=== PATIENT | female | born 1955 | race Caucasian/White ===

== ENCOUNTER 2018-04-02 05:17 | Inpatient (IN) ==
[2018-04-02] MEDS ORDERED: fentaNYL citrate 100 MCG/2 ML VIAL IV STA ×2 (05:33→06:20)
--- NOTE | 2018-04-02 05:39 | Emergency Department Note ---
ED Provider Note Name: Katlyn Schreiber Age: 62 F Arrives Via: EMS Informant: Patient CC: Neck pain HPI: 62 female arrives for evaluation of neck pain. Patient notes 1 month of cervical pain. Radiation to left face, left shoulder, left chest, and sometimes down back. Using Tylenol for mild improvement. She notes she has seen PCP for this without clear cause other than Xrays showing cervical degenerative changes. Was on a course of prednisone which did improve symptoms though they returned. She notes she was sleeping in a new bed this evening while visiting daughter. She notes she awoke and pain was unbearable. Associated with nausea, diaphoresis, and lightheadedness. No syncope, sob, abdominal pain, back pain, urinary/bowel changes, leg swelling, weakness, nor other symptoms. 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 Nothing makes better nor worse. Denies trauma. No heavy lifting. ROS: See above HPI for pertinent positives & negatives. A total of 10 systems reviewed and were otherwise negative. Past Medical History: None Past Surgical History: Family History: Brother with CAD Social History: Works as nurse, non-smoker, lives with Home Medications: None Allergies None Physical: Vitals: 122/67, P 61, R 20, T 36.4, O2 100% RA Exam: GENERAL: Patient is uncomfortable appearing and in moderate distress. Crying EYES: No scleral icterus, unremarkable pupils. ENT: Mucous membranes moist, no nasal congestion. NECK: No masses appreciated, no meningismus, trachea is midline. RESPIRATORY: No dyspnea. Clear to auscultation and equal bilaterally. No wheeze , no rhonchi. CARDIOVASCULAR: Regular rate and rhythm. No murmurs, rubs, gallops appreciated. GASTROINTESTINAL: Abdomen soft, non-tender, no peritonitis. Bowel sounds positive. No masses appreciated. BACK: No midline tenderness, no CVA tenderness EXTREMITIES: Normal motion all extremities, no cyanosis, no edema. NEUROLOGIC: Alert and oriented, no acute motor or sensory deficits, no focal weakness, cranial nerves grossly intact. SKIN: No rash, no jaundice, no diaphoresis. ED Course: Prior Medical Record, Triage/Nursing Notes, Medications, Allergies reviewed by Me Vital Signs: reviewed and remarkable for WNL Labs: Reviewed and remarkable for mild elevated dimer, normal cbc, bmp, trop nonnegative but wnl Interventions: Saline Lock, SLNTG, Fentanyl 50mcg IV, Asa 324mg PO Imaging: X ray results are stated below per my interpretation: Chest: 1 view: No infiltrate, no effusion, normal cardiac border. Large hiatal hernia. No previous for comparison. No widened mediastinum. EKG: Per My Interpretation: NSR at 62 bpm. STEMI inferior leads with reciprical changes. qtc 428. No previous for comparison. Consults: Dr Arteaga of [facility]. He was a bedside shortly there- after and took patient to [facility]. Blood pressure: Normal. No Referral necessary Disposition: Taken to [facility]. Differentials: PA, MSK, Dissection, PE, PNThorax, Cervical radiculopathy amongst other pathologies. Medical Decision Makin yr old healthy female without PMH who arrives for left neck pain radiating to left shoulder, back and chest. This has been ongoing for several weeks though now with associated nausea, diaphoresis and weakness. EKG shortly after my evaluation reveals inferior PA. Suspect neck pain is something other than PA but the chest pain, diaphoresis and nausea likely is new givne Trop still wnl. EKG x 3 here showing progression of infarction. She was taken emergently to [facility]. Of note after first SLNTG significant hypotension thus fluids given and no further nitro, just fentanyl. CXR without widened mediastinum though does have large hiatal hernia. It was felt that this is unlikely dissection given EKG findings and will go to [facility] first. Not significantly shob and I do not feel that this is PE now that there is clear other cause of symptoms, despite mild elevated dimer. Patient monitored closely throughout and family kept updated. Impression: STEMI - Right Coronary Artery Critical Care Time: I have personally spent greater than 45 minutes of critical care time in the direct management of this patient. Acute STEMI with hypotension requiring emergent cardiac catheritization. This was a life/limb threatening event. This includes time spent evaluating patient, direct bedside care, chart review, placing orders, interpretation of diagnostic studies, discussion with consultants, patient, and family members, as well as other required patient management activities. This 45 minutes is in excess of all separately billable procedures. Gary Henning MD Impression & Plan ST elevation (STEMI) myocardial infarction involving right coronary artery Past Med/Surg History Social History Feels Safe at Home: Yes Smoking Status: Never smoker Hx Substance Use: No Results & Data Vital Signs Vital Signs - 24 hr 04/02/18 05:09 04/02/18 05:22 04/02/18 05:24 Temperature 36.4 C L Temperature Source Oral Sepsis Recent Fever Within 48 Hours No Sepsis New/Unexplained Change in Mental Status No Sepsis Action Taken by Nursing No Action Required Pulse Rate 61 61 61 Pulse Rhythm Regular Pulse Strength Normal Respiratory Rate 20 19 12 Respiratory Effort / Characteristics Non-Labored Respiratory Depth Normal Respiratory Pattern Regular Blood Pressure 122/67 122/67 Blood Pressure Mean 85 85 Blood Pressure Position Lying Pulse Oximetry 100 99 99 Oxygen Delivery Method Room Air 04/02/18 05:30 04/02/18 05:45 04/02/18 05:52 Temperature Temperature Source Sepsis Recent Fever Within 48 Hours Sepsis New/Unexplained Change in Mental Status Sepsis Action Taken by Nursing Pulse Rate 61 66 79 Pulse Rhythm Pulse Strength Respiratory Rate 19 16 23 Respiratory Effort / Characteristics Respiratory Depth Respiratory Pattern Blood Pressure 113/73 105/70 Blood Pressure Mean 86 81 Blood Pressure Position Pulse Oximetry 97 98 94 Oxygen Delivery Method 04/02/18 05:53 04/02/18 05:55 04/02/18 06:00 Temperature Temperature Source Sepsis Recent Fever Within 48 Hours Sepsis New/Unexplained Change in Mental Status Sepsis Action Taken by Nursing Pulse Rate 63 70 77 Pulse Rhythm Pulse Strength Respiratory Rate 15 19 17 Respiratory Effort / Characteristics Respiratory Depth Respiratory Pattern Blood Pressure 89/53 L 81/56 L Blood Pressure Mean 65 64 Blood Pressure Position Pulse Oximetry 96 93 Oxygen Delivery Method 04/02/18 06:01 04/02/18 06:06 04/02/18 06:07 Temperature Temperature Source Sepsis Recent Fever Within 48 Hours Sepsis New/Unexplained Change in Mental Status Sepsis Action Taken by Nursing Pulse Rate 91 H 68 71 Pulse Rhythm Pulse Strength Respiratory Rate 22 16 16 Respiratory Effort / Characteristics Respiratory Depth Respiratory Pattern Blood Pressure 104/63 108/67 Blood Pressure Mean 76 80 Blood Pressure Position Pulse Oximetry 94 Oxygen Delivery Method 04/02/18 06:10 04/02/18 06:15 04/02/18 06:20 Temperature Temperature Source Sepsis Recent Fever Within 48 Hours Sepsis New/Unexplained Change in Mental Status Sepsis Action Taken by Nursing Pulse Rate 72 74 73 Pulse Rhythm Pulse Strength Respiratory Rate 22 17 24 Respiratory Effort / Characteristics Respiratory Depth Respiratory Pattern Blood Pressure 114/70 113/72 117/76 Blood Pressure Mean 84 85 89 Blood Pressure Position Pulse Oximetry Oxygen Delivery Method 04/02/18 06:25 04/02/18 06:30 04/02/18 06:35 Temperature Temperature Source Sepsis Recent Fever Within 48 Hours Sepsis New/Unexplained Change in Mental Status Sepsis Action Taken by Nursing Pulse Rate 81 75 Pulse Rhythm Pulse Strength Respiratory Rate 16 19 Respiratory Effort / Characteristics Respiratory Depth Respiratory Pattern Blood Pressure 123/78 125/80 135/79 Blood Pressure Mean 93 95 97 Blood Pressure Position Pulse Oximetry Oxygen Delivery Method Laboratory Data Result diagrams: 04/02/18 05:44 04/02/18 05:44 Lab Results 04/02/18 04/02/18 04/02/18 Range/Units 05:44 05:44 05:44 WBC 7.27 (4.8-10.8) K/uL RBC 4.67 (4.2-5.4) M/uL Hgb 13.6 (12.0-16.0) g/dL POC Hgb (12.0-16.0) g/dl Hct 40.8 (37-47) % POC Hct (37-47) % MCV 87.4 (80-100) fL MCH 29.1 (25-34) pg MCHC 33.3 (32-36) g/dL RDW Std Deviation 43.7 (36.4-46.3) fL RDW Coeff of Lesly 13.7 (11.5-14.5) % Plt Count 199 (130-400) K/uL MPV 10.6 H (7.4-10.4) fL Immature Gran % (Auto) 0.3 % Neut % (Auto) 54.0 % Lymph % (Auto) 38.4 % Frontier % (Auto) 5.2 % Eos % (Auto) 1.7 % Baso % (Auto) 0.4 % Immature Gran # (Auto) 0.02 (0.00-0.02) K/uL Neut # (Auto) 3.93 (1.4-6.5) K/uL Lymph # (Auto) 2.79 (1.2-3.4) K/uL Frontier # (Auto) 0.38 (0.11-0.59) K/uL Eos # (Auto) 0.12 (0-0.5) K/uL Baso # (Auto) 0.03 (0-0.2) K/uL ESR 36 H (0-21) mm/hr D-Dimer 600 H* (0-500) ug/L FEU POC Sodium (135-144) mEq/L Sodium (136-145) mmol/L POC Potassium (3.3-5.0) mEq/L Potassium (3.5-5.1) mmol/L POC Chloride (101-112) mEq/L Chloride (98-107) mmol/L Carbon Dioxide (21-32) mmol/L POC Total CO2 (24-31) mEq/l Anion Gap (3-11) POC Anion Gap (16-25) mmol/L POC BUN (7-18) mg/dl BUN (7-18) mg/dl Creatinine (0.6-1.2) mg/dl POC Creatinine (0.6-1.3) mg/dl Est Cr Clr Drug Dosing ml/min Est GFR ( Amer) Est GFR (Non-Af Amer) BUN/Creatinine Ratio (10-20) Glucose (70-99) mg/dl POC Glucose (other) (70-99) mg/dl Calcium (8.5-10.1) mg/dl POC Ioniz Calcium Aminah (1.12-1.32) mmol/l POC Troponin I (0-0.045) ng/ml Troponin I (0-0.045) ng/ml C-Reactive Protein (0-0.29) mg/dl 04/02/18 04/02/18 04/02/18 Range/Units 05:44 05:53 05:55 WBC (4.8-10.8) K/uL RBC (4.2-5.4) M/uL Hgb (12.0-16.0) g/dL POC Hgb 13.3 (12.0-16.0) g/dl Hct (37-47) % POC Hct 39 (37-47) % MCV (80-100) fL MCH (25-34) pg MCHC (32-36) g/dL RDW Std Deviation (36.4-46.3) fL RDW Coeff of Lesly (11.5-14.5) % Plt Count (130-400) K/uL MPV (7.4-10.4) fL Immature Gran % (Auto) % Neut % (Auto) % Lymph % (Auto) % Frontier % (Auto) % Eos % (Auto) % Baso % (Auto) % Immature Gran # (Auto) (0.00-0.02) K/uL Neut # (Auto) (1.4-6.5) K/uL Lymph # (Auto) (1.2-3.4) K/uL Frontier # (Auto) (0.11-0.59) K/uL Eos # (Auto) (0-0.5) K/uL Baso # (Auto) (0-0.2) K/uL ESR (0-21) mm/hr D-Dimer (0-500) ug/L FEU POC Sodium 143 (135-144) mEq/L Sodium 140 (136-145) mmol/L POC Potassium 3.7 (3.3-5.0) mEq/L Potassium 3.7 (3.5-5.1) mmol/L POC Chloride 104 (101-112) mEq/L Chloride 108 H (98-107) mmol/L Carbon Dioxide 27 (21-32) mmol/L POC Total CO2 26 (24-31) mEq/l Anion Gap 5.0 (3-11) POC Anion Gap 17.0 (16-25) mmol/L POC BUN 25 H (7-18) mg/dl BUN 23 H (7-18) mg/dl Creatinine 0.78 (0.6-1.2) mg/dl POC Creatinine 0.8 (0.6-1.3) mg/dl Est Cr Clr Drug Dosing 68.5 ml/min Est GFR ( Amer) 93.8 Est GFR (Non-Af Amer) 80.9 BUN/Creatinine Ratio 30.1 H (10-20) Glucose 119 H (70-99) mg/dl POC Glucose (other) 117 H (70-99) mg/dl Calcium 9.0 (8.5-10.1) mg/dl POC Ioniz Calcium Aminah 1.26 (1.12-1.32) mmol/l POC Troponin I < 0.03 (0-0.045) ng/ml Troponin I 0.022 (0-0.045) ng/ml C-Reactive Protein 1.18 H (0-0.29) mg/dl Administered Medications Discontinued Medications Aspirin (Aspirin) 324 mg PO NOW STA Stop: 04/02/18 05:53 Last Admin: 04/02/18 06:06 Dose: 324 mg Dopamine HCl/Dextrose (Dopamine / D5w (Oil Changer Use Only)) Confirm Administered Dose 400 mg .ROUTE .STK-MED ONE Stop: 04/02/18 07:04 Last Admin: 04/02/18 07:31 Dose: Not Given Fentanyl Citrate (Fentanyl Citrate) 50 mcg IV NOW STA Stop: 04/02/18 05:34 Last Admin: 04/02/18 05:49 Dose: 50 mcg Fentanyl Citrate (Fentanyl Citrate) 50 mcg IV ONCE STA Stop: 04/02/18 06:21 Last Admin: 04/02/18 06:20 Dose: 50 mcg Fentanyl Citrate (Fentanyl Citrate) Confirm Administered Dose 100 mcg .ROUTE .STK-MED ONE Stop: 04/02/18 06:23 Last Increment: 04/02/18 07:30 Dose: 75 mcg Heparin Sodium (Porcine) (Heparin Iv Bolus (Oil Changer Use Only)) Confirm Administered Dose 10,000 units .ROUTE .STK-MED ONE Stop: 04/02/18 06:23 Last Admin: 04/02/18 07:30 Dose: 11,000 units Heparin Sodium (Porcine) (Heparin Iv Bolus (Oil Changer Use Only)) Confirm Administered Dose 10,000 units .ROUTE .STK-MED ONE Stop: 04/02/18 07:14 Last Admin: 04/02/18 07:31 Dose: Not Given Heparin Sodium/Sodium Chloride (Heparin Sod/Nss 2 Units/Ml) Confirm Administered Dose 3,000 units IV .STK-MED ONE Stop: 04/02/18 06:23 Last Admin: 04/02/18 06:54 Dose: 3,000 units Lidocaine HCl (Xylocaine 1% (Local)) Confirm Administered Dose 20 ml .ROUTE .STK -MED ONE Stop: 04/02/18 06:24 Last Admin: 04/02/18 06:54 Dose: 20 ml Midazolam HCl (Versed) Confirm Administered Dose 2 mg .ROUTE .STK-MED ONE Stop: 04/02/18 06:23 Last Admin: 04/02/18 07:30 Dose: 2 mg Nicardipine HCl (Cardene) Confirm Administered Dose 25 mg .ROUTE .STK-MED ONE Stop: 04/02/18 06:23 Last Admin: 04/02/18 06:53 Dose: 25 mg Nitroglycerin (Nitrostat) Confirm Administered Dose 0.4 mg .ROUTE .STK-MED ONE Stop: 04/02/18 05:50 Last Admin: 04/02/18 05:50 Dose: 0.4 mg Nitroglycerin/Dextrose (Nitroglycerin/D5w 100 Mcg/Ml 20ml Syringe) Confirm Administered Dose 2,000 mcg .ROUTE .STK-MED ONE Stop: 04/02/18 06:23 Last Admin: 04/02/18 06:54 Dose: 2,000 mcg Discharge Plan Visit Data Chief Complaint: Back Pain/Injury ED Provider: Gary Henning Discharge Problem: ST elevation (STEMI) myocardial infarction involving right coronary artery Patient Disposition: Admitted As Inpatient Discharge Instructions Interventions: ED Discharge Assessment Last Done: 04/02/18 06:37 Forms Stand Alone Forms: [employer] Prescriptions Prescriptions: No Action cholecalciferol (vitamin D3) [Vitamin D3] 2,000 unit Tablet 2,000 unit PO DAILY RF: 0 Referrals Referrals: PCP,NO [Primary Care Provider] -
[2018-04-02] MEDS ORDERED: NITROGLYCERIN SL 0.4 MG/TAB TAB ONE (05:49)
[2018-04-02] MEDS ORDERED: ASPIRIN 81 MG CHEW PO STA (05:52)
[2018-04-02 05:58] LABS: Basophils # (auto) 0.03 K/uL (0-0.2); Basophils % (auto) 0.4 %; Eosinophils # (auto) 0.12 K/uL (0-0.5); Eosinophils % (auto) 1.7 %; Hematocrit (blood only) 40.8 % (37-47); Hemoglobin 13.6 g/dL (12.0-16.0); Immature Granulocytes # (auto) 0.02 K/uL (0.00-0.02); Immature Granulocytes % (auto) 0.3 %; Lymphocytes # (auto) 2.79 K/uL (1.2-3.4); Lymphocytes % (auto) 38.4 %; Mean Corpuscular Hgb Conc 33.3 g/dL (32-36); Mean Corpuscular Volume 87.4 fL (80-100); Mean Platelet Volume 10.6 fL (7.4-10.4); Monocytes # (auto) 0.38 K/uL (0.11-0.59); Monocytes % (auto) 5.2 %; Neutrophils # (auto) 3.93 K/uL (1.4-6.5); Platelet Count 199 K/uL (130-400); RDW Coefficient of Variation 13.7 % (11.5-14.5); RDW Standard Deviation 43.7 fL (36.4-46.3); Red Blood Count 4.67 M/uL (4.2-5.4); White Blood Count 7.27 K/uL (4.8-10.8)
[2018-04-02 06:09] LABS: BUN Creatinine Ratio 30.1 (10-20); Creatinine Clr Calc Pharmacy 68.5 ml/min; Est GFR (African American) 93.8; Est GFR (Non-African American) 80.9; Potassium 3.7 mmol/L (3.5-5.1)
[2018-04-02 06:09] LABS: iSTAT Hemoglobin 13.3 g/dl (12.0-16.0); iSTAT Ionized Calcium 1.26 mmol/l (1.12-1.32)
[2018-04-02 06:14] LABS: C Reactive Protein 1.18 mg/dl (0-0.29); Troponin I 0.022 ng/ml (0-0.045)
[2018-04-02] MEDS ORDERED: fentaNYL citrate 100 MCG/2 ML VIAL ONE (06:22)
[2018-04-02] MEDS ORDERED: NITROGLYCERIN/D5W 100MCG/ML 20ML SYR ONE (06:22)
[2018-04-02] MEDS ORDERED: HEPARIN (PORCINE) 1000 UNIT/ML 10 ML (CATH LAB USE ONLY) ONE ×2 (06:22→07:13)
[2018-04-02] MEDS ORDERED: MIDAZOLAM HCL 1 MG/ML 2ML VIAL ONE (06:22)
[2018-04-02] MEDS ORDERED: NiCARDipine HCL INJ 2.5 MG/ML 10 ML AMP ONE (06:22)
[2018-04-02] MEDS ORDERED: LIDOCAINE HCL 1% 20 ML VIAL ONE (06:23)
--- NOTE | 2018-04-02 06:40 | Pre Anesthesia Assessment ---
Date of Service April 02, 2018 Pre Sedation Assessment Vital Signs Temp Pulse Resp BP Pulse Ox 04/02/18 06:35 135/79 04/02/18 06:30 75 19 125/80 04/02/18 06:25 81 16 123/78 04/02/18 06:20 73 24 117/76 04/02/18 06:15 74 17 113/72 04/02/18 06:10 72 22 114/70 04/02/18 06:07 71 16 04/02/18 06:06 68 16 108/67 04/02/18 06:01 91 H 22 104/63 94 04/02/18 06:00 77 17 04/02/18 05:55 70 19 81/56 L 93 04/02/18 05:53 63 15 89/53 L 96 04/02/18 05:52 79 23 105/70 94 04/02/18 05:45 66 16 98 04/02/18 05:30 61 19 113/73 97 04/02/18 05:24 61 12 99 04/02/18 05:22 61 19 122/67 99 04/02/18 05:09 36.4 C L 61 20 122/67 100 Cardiovascular RRR, no murmur, no edema Respiratory normal respiratory effort, lungs clear to auscultation Pre-Sedation Airway Assessment Smoking Status: Never smoker Hx Sleep Apnea: No Hx Difficult Intubation: No Short, Thick Neck: No Thyromental Distance: > or= 3.5 Finger Breadths Oral Cavity: + Dental Abnormalities Mallampati Class: II Procedure Planning Contraindications for Sedation: none Current Medications Reviewed: Yes Notes The planned sedation has been discussed with the patient. Informed Consent was obtained. I have identified the patient, determined the appropriateness of sedation and have assessed the patient immediately prior to the procedure. All medicine(s) and interventions are by my order.
[2018-04-02] MEDS ORDERED: DOPamine 400MG / 250ML D5W (CATH LAB USE ONLY) ONE (07:03)
--- NOTE | 2018-04-02 07:17 | XRay Report ---
XR chest 1V portable HISTORY: HEART ALERT COMPARISON: None. FINDINGS: The heart is top normal in size. No pleural effusions. No pneumothorax. Retrocardiac lucenc y favors a moderate to large hiatus hernia. Hazy appearance to the left lung base may represent promi nent mediastinal fat. The lungs are otherwise clear. IMPRESSION: 1. No acute process within the chest. 2. Moderate to large hiatus hernia. Electronically signed by: David Pruitt M.D. 04/02/2018 7:16 AM
[2018-04-02] MEDS ORDERED: TICAGRELOR 90 MG TAB PO ONE (07:35)
--- NOTE | 2018-04-02 07:37 | Post Anesthesia Assessment ---
Date of Service April 02, 2018 Post Sedation Assessment Vital Signs Temp Pulse Resp BP Pulse Ox 04/02/18 06:35 135/79 04/02/18 06:30 75 19 125/80 04/02/18 06:25 81 16 123/78 04/02/18 06:20 73 24 117/76 04/02/18 06:15 74 17 113/72 04/02/18 06:10 72 22 114/70 04/02/18 06:07 71 16 04/02/18 06:06 68 16 108/67 04/02/18 06:01 91 H 22 104/63 94 04/02/18 06:00 77 17 04/02/18 05:55 70 19 81/56 L 93 04/02/18 05:53 63 15 89/53 L 96 04/02/18 05:52 79 23 105/70 94 04/02/18 05:45 66 16 98 04/02/18 05:30 61 19 113/73 97 04/02/18 05:24 61 12 99 04/02/18 05:22 61 19 122/67 99 04/02/18 05:09 36.4 C L 61 20 122/67 100 Recovery Score Activity: Moves 4 extremities Respiration: Deep Breath/Cough Circulation: +/-20% PreAnes Value Consciousness: Fully Awake Oxygen Saturation: > 92% On Room Air Post Anesthesia Score: 10 Discharge Sedation Level of Care: Fast Track Phase II Post Sedation Plan On clinical assessment, the patient appears to have tolerated the sedation without complications. Patient is recovering as anticipated. Patient will continue to be monitored by nursing and may be discharged when sedation discharge criteria are met per below protocol. Upon Completions of procedure and additional 15 minutes continue every 5 minute vital signs and the P.A.R. score; then discharge to a Phase I or Fast Track to Phase II per the following guidelines: * Discharge Patient to appropriate Phase II area if PAR is 8 or greater or return to pre- procedure baseline. The post - procedure orders will be as directed. * If PAR score is less than 8 or not return to pre-procedure baseline then patient will follow Phase I monitoring till PAR is reached for Phase II. The Phase I may be done in procedure room or may call to secure a Phase I area. * If naloxone or flumazenil are used for reversal, hold in Phase I for continued monitoring from when last reversal dose was given for a minimum of 60 minutes or longer pending the nurse and/or physician discretion of patient condition before discharge to Phase II. Please call the Sedation Physician to re-evaluate and complete post-note for discharge to Phase II area. Do NOT discharge from procedure sedation or Phase 1 until post- sedation evaluation note is complete by procedure /sedation MD Sedation Discharge Instructions to be given to the patient at discharge to home.
[2018-04-02] MEDS ORDERED: ICU PROTOCOL FOR HYPERGLYCEMIA PRN (07:49)
--- NOTE | 2018-04-02 07:49 | Cardiac Catheterization ---
Cardiac Cath Procedure Full Procedure Date April 02, 2018 Pre-Procedure Diagnosis Pre-Procedure Diagnosis: STEMI AUC Score AUC Score: 9 Post-Procedure Diagnosis Post-Procedure Diagnosis: Severe CAD, Successful PCI and Normal Intracardiac Pressures Procedure(s) Performed Procedure(s) Performed: Coronary Angiography, Left Heart Cath, LV Angiography and Drug Eluting Stent Engineer Process Manuel Arteaga MD Site Monitor(s) Yoko Estimated Blood Loss Estimated Blood Loss: 10 Medication(s) Medication(s): Fentanyl, Heparin, Lidocaine 1%, Nicardipine, Nitroglycerin and Versed Summary of Findings Indication: STEMI/Heart Alert Access: 6 Italian right radial artery Catheters: Mccloud, pigtail; JR4 guide Findings: LM -20% distal disease LAD -moderate caliber vessel with diffuse 40% disease, 50-60% stenosis in the mid segment after takeoff of small second diagonal Circumflex -moderate caliber vessel, mid segment luminal irregularities. Because of moderate caliber OM 2 without significant disease RCA -dominant vessel, 30% earlymid disease prior to 100% acute occlusion at takeoff of acute marginal. LVEDP -12 LVEF approximately 50%, inferior hypokinesis -- PCI -- Antithrombotic therapy: Heparin, ticagrelor Procedure: RCA cannulated with JR4 guide BMW wire wire passed across lesion into distal vessel Mid RCA lesion predilated with 2.5 compliant balloon Dilated lesion stented with 3.0 x 34 mm [place] drug-eluting stent Stent post-dilated with 3.5 noncompliant balloon Post procedure VIANNEY 3 flow, stent well expanded with minimal residual stenosis and no apparent cardiac complications. Arterial Closure: TR band Summary: 1. Inferior STEMI/Occluded mid RCA 2. Moderate single-vessel non-culprit coronary artery disease -40% diffuse proximal LAD, 50-60% focal mid LAD 3. Normal intracardiac filling pressure 4. Successful PCI of mid RCA with single drug-eluting stent (3.0 x 34 mm [place]; postdilated with 3.5 NC) Recommendations: Admit to ICU for continued monitoring Loaded with ticagrelor 180 mg Continue dual-antiplatelet therapy for at least 1 year. Trend troponins until peak, Check Echo Uptitrate beta-digna/MARTHA as BP allows High-dose statin Consult cardiac Rehab Hemodynamics Rest Ao:: 148/74/107 Final Ao: 102/66/84 LV: 95/12 Recommendations Recommendations: PCI without planned CABG Specimens Specimens: None Radiation Exposure (mGy) 2082 Contrast (mls) 80 OPTi Fluids (cc crystalloids) Fluids (cc crystalloids): 292 Drains Drains: None Anesthesia Moderate Procedural Complication(s) None Disposition ICU ACC Data: Nurse Intern Cardiac Status Clinical evaluation leading to the procedure CAD Presenation: STEMI Anginal Classification: CCS IV Heart Failure: No Cardiogenic Shock within 24 Hours: No Cardiac Arrest within 24 Hours: No Imaging Studies Past 6 Months: No Stress Studies Past 6 Months: No Diagnostic Physicians Name: Manuel Arteaga MD Status: Emergency Closure Device Percutaneous Entry Location: Radial Closure Device: Radial Band Recommendations: PCI without planned CABG PCI Indication: Immediate PCI for STEMI First Noted: First EKG Lesion Segment Name: Mid RCA Culprit Artery: Yes Stenosis Prior to Rx (%): 100 Chronic Total Occlusion: No IVUS: No FFR: No Pre-Procedure VIANNEY Flow: 0 Previously Treated Lesion: No Lesion Complexity: Non-High/Non-C Lesion Length (mm): 25 Thrombus Present: Yes Bifurcation Lesion: No Guidewire Across Lesion: Stenosis Post-Procedure (%): 0 Post-Procedure VIANNEY Flow : 3 Devices(s) Deployed: Yes Yes Intraprocedure Events Significant Disection: No Perforation: No
[2018-04-02] MEDS ORDERED: SODIUM CHLORIDE 0.9% 1000ML 1,000 ML IV SCH (08:00)
--- NOTE | 2018-04-02 08:13 | History & Physical Report ---
Date of Service April 02, 2018 Assessment & Plan (1) ST elevation (STEMI) myocardial infarction involving right coronary artery: This patient is a 62-year-old female with history of osteopenia and GERD who presents to the ER with acute onset of left-sided chest pain radiating to the left jaw and spiritism and into the left shoulder blade and left shoulder. She reports she has had symptoms of left-sided neck pain and some burning in the left chest with radiation in the shoulder off and on for the last month but not as severe as upon this presentation. She was taking ranitidine as needed for what she thought was acid reflux with the burning in the chest. The pain was coming on both at rest and with exertion. She had x-rays of the neck and was thought to have degenerative disc disease of the C-spine. Last night though , she had severe chest pain, associated with nausea and diaphoresis. In the ER, she was found to have an inferior ST elevation [place] with reciprocal changes in the lateral leads. She was taken urgently to the [facility] where she had complete occlusion of her RCA which was stented. She had mild to moderate disease elsewhere. She was loaded with Brilinta, was hemodynamically stable, and was transferred to the ICU for admission. She was chest pain-free at the time of admission to the ICU. -Admit to intensive care unit for monitoring post intervention with RCA occlusion status post stent placement -Loaded with Brilinta and will continue Brilinta 90 mg p.o. twice daily -Start aspirin 81 mg once daily -Start metoprolol 12.5 mg p.o. twice daily -Started on lisinopril 5 mg once daily -Start atorvastatin high intensity 80 mg once daily -Continue monitoring for arrhythmia -Trend troponin until peak -Check echocardiogram -Will need cardiac rehab and cardiology follow-up as an outpatient (2) Osteopenia: Stable -Hold home vitamin D for now (3) GERD (gastroesophageal reflux disease): Has history of heartburn, unclear if this is related to her recent cardiac issues or not. Was taking ranitidine at home. -Was started on Protonix 40 mg p.o. twice daily by the hand slitter today (4) Degenerative disc disease: With neck pain times 1 month on the left side, found to have degenerative disc disease on x-ray reportedly as per patient. Was thought by her PCP to have possible radiculopathy from cervical spine stenosis as the cause of her recent pain -Recommend observation for improvement now status post cardiac stenting -Can follow-up as an outpatient with her primary care physician (5) Shoulder pain, left: Again, with left scapular pain recently coming and going and thought to be from cervical spine issues. Question now if likely was from angina prior to admission. -Observe for improvement now that cardiac issues are resolved (6) DVT prophylaxis: Aspirin, Brilinta FERN hose Disposition-admit to intensive care unit Appreciate hand slitter and cardiology management History of Present Illness Chief Complaint: Chest pain Primary Care Provider: NO PCP This patient is a 62-year-old female with history of osteopenia and GERD who presents to the ER with acute onset of left-sided chest pain radiating to the left jaw and spiritism and into the left shoulder blade and left shoulder. She reports she has had symptoms of left-sided neck pain and some burning in the left chest with radiation in the shoulder off and on for the last month but not as severe as upon this presentation. She was taking ranitidine as needed for what she thought was acid reflux with the burning in the chest. The pain was coming on both at rest and with exertion. She had x-rays of the neck and was thought to have degenerative disc disease of the C-spine. Last night though, she had severe chest pain, associated with nausea and diaphoresis. In the ER, she was found to have an inferior ST elevation [place] with reciprocal changes in the lateral leads. She was taken urgently to the [facility] where she had complete occlusion of her RCA which was stented. She had mild to moderate disease elsewhere. She was loaded with Brilinta, was hemodynamically stable, and was transferred to the ICU for admission. Allergies Allergy/AdvReac Type Severity Reaction Status Date / Time No Known Allergies Allergy Unverified 04/02/18 06:31 Home Medications Home Medications Medication Instructions Recorded Confirmed Type cholecalciferol (vitamin D3) 2,000 unit PO DAILY 04/02/18 04/02/18 History [Vitamin D3] ranitidine HCl 150 mg PO DAILY PRN 04/02/18 04/02/18 History Past Med/Surg History Medical History Osteopenia GERD (gastroesophageal reflux disease) Fibromyalgia joint and muscle pain chronic Degenerative disc disease Surgical History History of section Family History Brother CAD (coronary artery disease), [place] coronary artery, Onset Age: 58 With CABG at age 58 Father CAD (coronary artery disease), [place] coronary artery, Onset Age: 79 With history of CABG, smoker Mother , Old age HTN (hypertension), benign Social History marital status: Current Living Situation: Spouse current occupational status: employed 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 [place] Other Information That Helps Us Care for You: No Feels Safe at Home: Yes Smoking Status: Never smoker Hx Alcohol Use: Yes (very minimal) Alcohol type: other Alcohol Intake Frequency : holidays/special occasions only Hx Substance Use: No Beliefs That Will Affect Care: Advent Advent Beliefs: sikhism Preferred Language: Swazi Communication Ability: Effective Wire Machine Cutter Required: No Review of Systems All systems reviewed & are unremarkable except as noted in HPI & below Physical Exam 2 Vital Signs (Past 24 Hours): Last Vital Signs Temp 36.4 C L 04/02/18 05:09 Pulse 75 04/02/18 06:30 Resp 19 04/02/18 06:30 BP 135/79 04/02/18 06:35 Pulse Ox 94 04/02/18 06:01 Constitutional: WD/WN, vitals as above Eyes: PERRL, conjunctivae normal, anicteric sclerae ENMT: external ear and nose normal, oropharynx normal Neck: trachea midline, no thyromegaly Respiratory: normal respiratory effort, lungs clear to auscultation Cardiovascular: RRR, no murmur, no edema Heart Sounds: normal S1 and normal S2 Vessels: no JVD, no carotid bruit and no abdominal aortic bruit Gastrointestinal (Abdomen): normal bowel sounds, soft, nontender, no hepatosplenomegaly (With midline lower abdominal surgical incisional scar) Musculoskeletal: Extremities: extremities normal to inspection; no cyanosis and no clubbing Skin: no rashes, warm and dry Neurologic: moves all extremities and awake; no focal motor deficits Psychiatric: A+Ox3, euthymic affect Genitourinary: normal external appearance Lymphatic: no cervical lymphadenopathy Results & Data Laboratory Results 12/26/18 12/26/18 12/26/18 Range/Units 08:00 07:24 07:10 WBC (4.8-10.8) K/uL RBC (4.2-5.4) M/uL Hgb (12.0-16.0) g/dL POC Hgb (12.0-16.0) g/dl Hct (37-47) % POC Hct (37-47) % MCV (80-100) fL MCH (25-34) pg MCHC (32-36) g/dL RDW Std Deviation (36.4-46.3) fL RDW Coeff of Lesly (11.5-14.5) % Plt Count (130-400) K/uL MPV (7.4-10.4) fL Immature Gran % (Auto) % Neut % (Auto) % Lymph % (Auto) % [place] % (Auto) % Eos % (Auto) % Baso % (Auto) % Immature Gran # (Auto) (0.00-0.02) K/uL Neut # (Auto) (1.4-6.5) K/uL Lymph # (Auto) (1.2-3.4) K/uL [place] # (Auto) (0.11-0.59) K/uL Eos # (Auto) (0-0.5) K/uL Baso # (Auto) (0-0.2) K/uL ESR (0-21) mm/hr Activ Coag Time Kaolin 241 H 230 H (94-140) SECONDS D-Dimer (0-500) ug/L FEU POC Sodium (135-144) mEq/L Sodium (136-145) mmol/L POC Potassium (3.3-5.0) mEq/L Potassium (3.5-5.1) mmol/L POC Chloride (101-112) mEq/L Chloride (98-107) mmol/L Carbon Dioxide (21-32) mmol/L POC Total CO2 (24-31) mEq/l Anion Gap (3-11) POC Anion Gap (16-25) mmol/L POC BUN (7-18) mg/dl BUN (7-18) mg/dl Creatinine (0.6-1.2) mg/dl POC Creatinine (0.6-1.3) mg/dl Est Cr Clr Drug Dosing ml/min Est GFR ( Amer) Est GFR (Non-Af Amer) BUN/Creatinine Ratio (10-20) Glucose (70-99) mg/dl POC Glucose (other) (70-99) mg/dl Calcium (8.5-10.1) mg/dl POC Ioniz Calcium Aminah (1.12-1.32) mmol/l POC Troponin I (0-0.045) ng/ml Troponin I (0-0.045) ng/ml C-Reactive Protein (0-0.29) mg/dl Nasal Screen MRSA (PCR) Negative (Negative) 04/02/18 04/02/18 04/02/18 Range/Units 05:55 05:53 05:44 WBC (4.8-10.8) K/uL RBC (4.2-5.4) M/uL Hgb (12.0-16.0) g/dL POC Hgb 13.3 (12.0-16.0) g/dl Hct (37-47) % POC Hct 39 (37-47) % MCV (80-100) fL MCH (25-34) pg MCHC (32-36) g/dL RDW Std Deviation (36.4-46.3) fL RDW Coeff of Lesly (11.5-14.5) % Plt Count (130-400) K/uL MPV (7.4-10.4) fL Immature Gran % (Auto) % Neut % (Auto) % Lymph % (Auto) % [place] % (Auto) % Eos % (Auto) % Baso % (Auto) % Immature Gran # (Auto) (0.00-0.02) K/uL Neut # (Auto) (1.4-6.5) K/uL Lymph # (Auto) (1.2-3.4) K/uL [place] # (Auto) (0.11-0.59) K/uL Eos # (Auto) (0-0.5) K/uL Baso # (Auto) (0-0.2) K/uL ESR (0-21) mm/hr Activ Coag Time Kaolin (94-140) SECONDS D-Dimer (0-500) ug/L FEU POC Sodium 143 (135-144) mEq/L Sodium 140 (136-145) mmol/L POC Potassium 3.7 (3.3-5.0) mEq/L Potassium 3.7 (3.5-5.1) mmol/L POC Chloride 104 (101-112) mEq/L Chloride 108 H (98-107) mmol/L Carbon Dioxide 27 (21-32) mmol/L POC Total CO2 26 (24-31) mEq/l Anion Gap 5.0 (3-11) POC Anion Gap 17.0 (16-25) mmol/L POC BUN 25 H (7-18) mg/dl BUN 23 H (7-18) mg/dl Creatinine 0.78 (0.6-1.2) mg/dl POC Creatinine 0.8 (0.6-1.3) mg/dl Est Cr Clr Drug Dosing 68.5 ml/min Est GFR ( Amer) 93.8 Est GFR (Non-Af Amer) 80.9 BUN/Creatinine Ratio 30.1 H (10-20) Glucose 119 H (70-99) mg/dl POC Glucose (other) 117 H (70-99) mg/dl Calcium 9.0 (8.5-10.1) mg/dl POC Ioniz Calcium Aminah 1.26 (1.12-1.32) mmol/l POC Troponin I < 0.03 (0-0.045) ng/ml Troponin I 0.022 (0-0.045) ng/ml C-Reactive Protein 1.18 H (0-0.29) mg/dl Nasal Screen MRSA (PCR) (Negative) 04/02/18 04/02/18 04/02/18 Range/Units 05:44 05:44 05:44 WBC 7.27 (4.8-10.8) K/uL RBC 4.67 (4.2-5.4) M/uL Hgb 13.6 (12.0-16.0) g/dL POC Hgb (12.0-16.0) g/dl Hct 40.8 (37-47) % POC Hct (37-47) % MCV 87.4 (80-100) fL MCH 29.1 (25-34) pg MCHC 33.3 (32-36) g/dL RDW Std Deviation 43.7 (36.4-46.3) fL RDW Coeff of Lesly 13.7 (11.5-14.5) % Plt Count 199 (130-400) K/uL MPV 10.6 H (7.4-10.4) fL Immature Gran % (Auto) 0.3 % Neut % (Auto) 54.0 % Lymph % (Auto) 38.4 % [place] % (Auto) 5.2 % Eos % (Auto) 1.7 % Baso % (Auto) 0.4 % Immature Gran # (Auto) 0.02 (0.00-0.02) K/uL Neut # (Auto) 3.93 (1.4-6.5) K/uL Lymph # (Auto) 2.79 (1.2-3.4) K/uL [place] # (Auto) 0.38 (0.11-0.59) K/uL Eos # (Auto) 0.12 (0-0.5) K/uL Baso # (Auto) 0.03 (0-0.2) K/uL ESR 36 H (0-21) mm/hr Activ Coag Time Kaolin (94-140) SECONDS D-Dimer 600 H* (0-500) ug/L FEU POC Sodium (135-144) mEq/L Sodium (136-145) mmol/L POC Potassium (3.3-5.0) mEq/L Potassium (3.5-5.1) mmol/L POC Chloride (101-112) mEq/L Chloride (98-107) mmol/L Carbon Dioxide (21-32) mmol/L POC Total CO2 (24-31) mEq/l Anion Gap (3-11) POC Anion Gap (16-25) mmol/L POC BUN (7-18) mg/dl BUN (7-18) mg/dl Creatinine (0.6-1.2) mg/dl POC Creatinine (0.6-1.3) mg/dl Est Cr Clr Drug Dosing ml/min Est GFR ( Amer) Est GFR (Non-Af Amer) BUN/Creatinine Ratio (10-20) Glucose (70-99) mg/dl POC Glucose (other) (70-99) mg/dl Calcium (8.5-10.1) mg/dl POC Ioniz Calcium Aminah (1.12-1.32) mmol/l POC Troponin I (0-0.045) ng/ml Troponin I (0-0.045) ng/ml C-Reactive Protein (0-0.29) mg/dl Nasal Screen MRSA (PCR) (Negative) Diagnostic Findings Chest x-ray image personally reviewed and agree with the following report: XR chest 1V portable HISTORY: HEART ALERT COMPARISON: None. FINDINGS: The heart is top normal in size. No pleural effusions. No pneumothorax. Retrocardiac lucency favors a moderate to large hiatus hernia. Hazy appearance to the left lung base may represent prominent mediastinal fat. The lungs are otherwise clear. IMPRESSION: 1. No acute process within the chest. 2. Moderate to large hiatus hernia. ECG Indication: chest pain Rate (beats per minute): 62 Rhythm: normal sinus Findings: + ST elevation (Inferior leads with reciprocal changes in the lateral leads) Additional Comments: 2 subsequent ECGs with similar findings with septal infarct evolving Code Status & VTE Plan Code Status Full code VTE Prophylaxis Plan VTE Prophylaxis will be ordered: Yes Critical Care Time Critical Care Time: No _ (1) Degenerative disc disease Spinal region: unspecified cervical region Qualified Code(s): M50.30 - Other cervical disc degeneration, unspecified cervical region (2) GERD (gastroesophageal reflux disease) Esophagitis presence: esophagitis presence not specified Qualified Code(s): K21.9 - Gastro-esophageal reflux disease without esophagitis
--- NOTE | 2018-04-02 08:34 | Consultation Report ---
DATE OF CONSULTATION: 04/02/2018 CARDIOLOGY CONSULTATION CONSULTATION REQUESTED BY: Dr. Henning. REASON FOR CONSULTATION: Heart alert/inferior NSTEMI. HISTORY OF PRESENT ILLNESS: Ms. Schreiber is a 62-year-old woman without significant past medical history who has been having intermittent neck, left shoulder pain over the preceding month. She developed severe persistent neck and left shoulder pain with associated nausea and shortness of breath overnight and presented to the ED. On arrival, the patient was hemodynamically stable. She had inferior ST elevations on her presenting EKG with anterior reciprocal changes and a heart alert was activated. At time of interview, the patient was having active ongoing chest pain, 11/15. PAST MEDICAL HISTORY: Osteoarthritis/cervical radiculopathy. MEDICATIONS: Vitamin D. ALLERGIES: None. FAMILY HISTORY: Brother had a LA requiring bypass surgery in his 50s. 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 She was here visiting her daughter for the [place] holiday who lives in [place]. Denies tobacco, alcohol or other drug use. She is . REVIEW OF SYSTEMS: Not completed in the setting of emergent situation. PHYSICAL EXAMINATION: VITAL SIGNS: Temperature 36.4, pulse 75, blood pressure 135/79. She was satting 94% on room air. GENERAL: The patient appeared uncomfortable, but no acute distress. HEENT: Sclerae are anicteric. Oropharynx is clear. Mucous members are moist. NECK: Supple with no lymphadenopathy. LUNGS: Clear to auscultation bilaterally. CARDIAC: Regular with no appreciable murmurs. ABDOMEN: Soft, nontender. EXTREMITIES: Warm with no significant lower extremity edema. SKIN: Showed no rashes or lesion. NEUROLOGIC: Nonfocal. LABORATORY DATA: White blood cell count 7.3, hemoglobin 13.6, platelets of 199. Sodium 143, potassium 3.7, BUN of 25, creatinine 0.8. Point of care troponin was negative. Chest x-ray showed no acute cardiopulmonary process. She did have a large hiatal hernia. IMPRESSION AND PLAN: Inferior ST segment elevation myocardial infarction. Ms. Schreiber is here with acute, severe left neck/shoulder pain beginning overnight. This is associated with inferior ST elevations concerning for an inferior STEMI. Plan to proceed directly to cardiac catheterization lab for emergent coronary angiography. Discussed the procedure with patient including risks, benefits and alternatives, and she is willing to proceed. Plan to perform via right radial artery. Further recommendations pending findings. Thank you for the consult.
[2018-04-02] MEDS: ATORVASTATIN 40 MG TAB PO SCH (09:33)
[2018-04-02] MEDS: ASPIRIN 81 MG ECTAB PO SCH (09:33)
[2018-04-02] MEDS: ACETAMINOPHEN 325 MG TAB PO PRN ×2 (09:33→21:19)
[2018-04-02] MEDS ORDERED: PERFLUTREN LIPID MICROSPHERE (DEFINITY) IV ONE (10:16)
--- NOTE | 2018-04-02 14:54 | Critical Care Consultation ---
Date of Consultation April 02, 2018 Assessment & Plan (1) ST elevation (STEMI) myocardial infarction involving right coronary artery: Impression: 1. ST elevation [place], status post ROSCOE in the RCA. 2. Hiatal hernia with persistent epigastric discomfort related to it. 3. 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 4. Occasional PVCs. Plan: 1. Continue with antiplatelet therapy. 2. We will continue to monitor for frequent PVCs that appear to be monofocal. 3. Start the patient on Protonix twice daily. 4. Repeat EKG reviewed personally showed normalization of ST segment in the inferior leads. 5. Oxycodone 5 mg p.o. every 4 hours as needed for pain. 6. The patient would like to have an MRI to the cervical spine prior to discharge, we will plan to arrange for that once she is stable to come off the monitor. Not at the moment. 7. Discussed in details with the staff on rounds. 8. Discussed with the family and the patient at the bedside. Critical care time spent with the patient was 35 minutes. History of Present Illness Reason for Consultation: ST elevation [place]. Requesting Physician: Dr. Arteaga. Attending Physician: Manuel Arteaga MD History of Present Illness Dear Dr. Puga, Dear Dr. Arteaga: Thank you for your kind referral Mrs. Leon to critical care service. This is 62-year-old female with history of GERD, osteoporosis, neck pain, that has been going on for the past month, the patient presented to the hospital with left-sided chest pain radiating to her left shoulder as well as to her neck area and to the jaw, the patient thought that her pain is related to her degenerative joint disease, the patient presented to the ED and underwent an EKG which showed ST elevation in 2 3 and aVF, the patient was taken to the [facility] and found to have a lesion in the RCA and underwent ROSCOE to the RCA by Dr. Arteaga, the patient admitted to the ICU for further monitoring. While the patient in the ICU, she did develop chest pain with a repeat EKG was done showing normalization of the ST elevation to the isoelectric line. Low voltage was noted. The patient did have frequent PVCs but nonsustained and does not escalate to the definition of V. tach. No heartburn was reported no nausea or vomiting, no abdominal pain no increased swelling in her lower extremities, and no pain in her right wrist. Allergies Allergy/AdvReac Type Severity Reaction Status Date / Time No Known Allergies Allergy Unverified 04/02/18 06:31 Home Medications Home Medications Medication Instructions Recorded Confirmed Type cholecalciferol (vitamin D3) 2,000 unit PO DAILY 04/02/18 04/02/18 History [Vitamin D3] ranitidine HCl 150 mg PO DAILY PRN 04/02/18 04/02/18 History Patient History Medical History Osteopenia GERD (gastroesophageal reflux disease) Fibromyalgia joint and muscle pain chronic Degenerative disc disease Surgical History History of section Family History Brother CAD (coronary artery disease), [place] coronary artery, Onset Age: 58 With CABG at age 58 Father CAD (coronary artery disease), [place] coronary artery, Onset Age: 79 With history of CABG, smoker Mother , Old age HTN (hypertension), benign Social History marital status: Current Living Situation: Spouse current occupational status: employed 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 Physical Exam 2 Vital Signs (Past 24 Hours): Last Vital Signs Temp 36.0 C L 04/02/18 08:00 Pulse 68 04/02/18 12:45 Resp 22 04/02/18 12:45 BP 119/64 04/02/18 12:45 Pulse Ox 96 04/02/18 12:45 Physical Exam: Vital signs are stable, map of 80, heart rate of 65 normal sinus rhythm, S1-S2 regular rate and rhythm, lungs are clear, abdomen is benign , no edema. Neurologically she is intact. Minimal tenderness with muscle spasm and the trapezoid and sternomastoid on the left. Results & Data Laboratory Results Labs were reviewed personally. Diagnostic Findings Chest x-ray with clear lungs and hiatal hernia.
[2018-04-02] MEDS: OXYCODONE HCL IR 5 MG TAB (IMMEDIATE RELEASE) PO PRN (15:16)
[2018-04-02] MEDS: CYCLOBENZAPRINE HCL 10 MG TAB PO PRN (18:06)
[2018-04-02] MEDS: METOPROLOL TARTRATE 25 MG TAB PO SCH (21:17)
[2018-04-02] MEDS: PANTOprazole 40 MG TAB PO SCH (21:19)
[2018-04-02] MEDS: TICAGRELOR 90 MG TAB PO SCH (21:19)
[2018-04-03] MEDS: OXYCODONE HCL IR 5 MG TAB (IMMEDIATE RELEASE) PO PRN (00:05)
[2018-04-03 04:36] LABS: Basophils # (auto) 0.02 K/uL (0-0.2); Basophils % (auto) 0.3 %; Eosinophils # (auto) 0.08 K/uL (0-0.5); Eosinophils % (auto) 1.1 %; Hematocrit (blood only) 33.6 % (37-47); Hemoglobin 11.2 g/dL (12.0-16.0); Immature Granulocytes # (auto) 0.01 K/uL (0.00-0.02); Immature Granulocytes % (auto) 0.1 %; Lymphocytes # (auto) 2.24 K/uL (1.2-3.4); Lymphocytes % (auto) 31.2 %; Mean Corpuscular Hgb Conc 33.3 g/dL (32-36); Mean Platelet Volume 10.4 fL (7.4-10.4); Monocytes # (auto) 0.57 K/uL (0.11-0.59); Monocytes % (auto) 7.9 %; Neutrophils # (auto) 4.26 K/uL (1.4-6.5); Neutrophils % (auto) 59.4 %; Platelet Count 167 K/uL (130-400); RDW Standard Deviation 45.3 fL (36.4-46.3); Red Blood Count 3.82 M/uL (4.2-5.4); White Blood Count 7.18 K/uL (4.8-10.8)
[2018-04-03 04:56] LABS: BUN Creatinine Ratio 23.3 (10-20); Calcium 8.6 mg/dl (8.5-10.1); Est GFR (African American) 103.3; Est GFR (Non-African American) 89.1; Potassium 3.8 mmol/L (3.5-5.1)
[2018-04-03 05:10] LABS: Troponin I 10.8 ng/ml (0-0.045)
[2018-04-03 06:34] LABS: Estimated Average Glucose 105 mg/dl
[2018-04-03] MEDS: ACETAMINOPHEN 325 MG TAB PO PRN ×2 (07:36→12:55)
[2018-04-03] MEDS: ATORVASTATIN 40 MG TAB PO SCH (07:37)
[2018-04-03] MEDS: METOPROLOL TARTRATE 25 MG TAB PO SCH ×2 (07:37→21:03)
[2018-04-03] MEDS: TICAGRELOR 90 MG TAB PO SCH ×2 (07:37→21:03)
[2018-04-03] MEDS: PANTOprazole 40 MG TAB PO SCH ×2 (07:37→21:03)
[2018-04-03] MEDS: LISINOPRIL 5 MG TAB PO SCH (07:38)
[2018-04-03] MEDS: ASPIRIN 81 MG ECTAB PO SCH (07:38)
[2018-04-03] MEDS ORDERED: POTASSIUM CHLORIDE PWD 20 MEQ PACK PO ONE (08:21)
--- NOTE | 2018-04-03 09:58 | Hospitalist Progress Note ---
Date of Service April 03, 2018 Assessment & Plan (1) ST elevation (STEMI) myocardial infarction involving right coronary artery: This patient is a 62-year-old female with history of osteopenia and GERD who presents to the ER with acute onset of left-sided chest pain radiating to the left jaw and taoism and into the left shoulder blade and left shoulder. She reports she has had symptoms of left-sided neck pain and some burning in the left chest with radiation in the shoulder off and on for the last month but not as severe as upon this presentation. She was taking ranitidine as needed for what she thought was acid reflux with the burning in the chest. The pain was coming on both at rest and with exertion. She had x-rays of the neck and was thought to have degenerative disc disease of the C-spine. On the night of admission, she had severe chest pain, associated with nausea and diaphoresis which was new for her. In the ER, she was found to have an inferior ST elevation OR with reciprocal changes in the lateral leads. 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 She had mild to moderate disease elsewhere. She was loaded with Brilinta, was hemodynamically stable, and was transferred to the ICU for admission. Remains chest pain-free, continues with musculoskeletal related complaints to the neck With some nonsustained ventricular tachycardia likely secondary to myocardial reperfusion Echocardiogram with inferior wall hypokinesis but normal EF ECG with evolving changes of inferior infarct Lipid panel actually looks excellent, hemoglobin A1c is normal at 5.3% Troponin peaked at 11 and is now trending back downward -continue Brilinta 90 mg p.o. twice daily-the nurse navigator will bobby check this for her as an outpatient -Continue aspirin 81 mg once daily -Continue metoprolol 12.5 mg p.o. twice daily -Continue lisinopril 5 mg once daily -Continue atorvastatin high intensity 80 mg once daily -Continue monitoring for arrhythmia -Will need cardiac rehab and cardiology follow-up as an outpatient-she wishes to continue following with [facility] cardiology after discharge (although she lives in [place]) -will discuss with cardiology and manager utilization review about transitioning her to the PCU out of the ICU today and will continue monitoring overnight (2) Shoulder pain, left: Ongoing along with left-sided neck pain and actually with radiation down the bilateral upper extremities left greater than right. ECG performed during episode of this yesterday was without acute ischemia again She has a completely nonfocal neurological exam and no evidence on exam of cervical myelopathy This is certainly not an urgent issue and can be treated with muscle relaxers, heating pad, and physical therapy as an outpatient -Discussed this with the patient and could pursue an MRI of the cervical spine as an outpatient if these conservative measures are not improving her symptoms -Continue pain control here with oxycodone as needed and Tylenol as needed, as well as cyclobenzaprine as needed for muscle spasm (3) Osteopenia: Stable -Hold home vitamin D for now and can restart on discharge (4) GERD (gastroesophageal reflux disease): Has history of heartburn, with hiatal hernia on chest x-ray. Was taking ranitidine at home. -Was started on Protonix 40 mg p.o. twice daily by the manager utilization review, however patient is hesitant to take a PPI long-term given its propensity and correlation with osteoporosis -She will continue ranitidine upon discharge on a as needed basis -She was also encouraged to lose weight in the abdomen which will help with GERD symptoms (5) Degenerative disc disease: As above in "left shoulder pain" (6) Nonsustained ventricular tachycardia: With 3-14 beat runs, likely secondary to myocardial reperfusion -Continue telemetry monitoring -Continue beta-digna -We will discuss with cardiology (7) DVT prophylaxis: Aspirin, Brilinta FERN hose Disposition-consider transition out of the ICU to the PCU today We will likely discharged to home tomorrow if improved Appreciate manager utilization review and cardiology management Subjective Patient reports having some intermittent left-sided posterior neck and scapula pain overnight that felt like a muscle spasm with radiating pain down the bilateral upper extremities left greater than right. She reports this is very similar to what is been going on for the last month. She denies weakness or tingling in the upper extremities. She denies difficulty with gait. No chest pain at all. She had an episode yesterday and had an ECG at the time which did not show any acute ischemia. Otherwise, denies shortness of breath or nausea. She has no other complaints. Telemetry arrhythmia recall reviewed and is had several runs of nonsustained ventricular tachycardia anywhere from 3-14 beats Otherwise normal sinus rhythm Review of Systems All systems reviewed & are unremarkable except as noted in HPI & below Physical Exam 2 Vital Signs (Past 24 Hours): Last Vital Signs Temp 36.9 C 04/03/18 07:32 Pulse 76 04/03/18 07:32 Resp 21 04/03/18 07:32 BP 107/61 04/03/18 07:32 Pulse Ox 94 04/03/18 06:00 Constitutional: WD/WN, vitals as above Eyes: PERRL, conjunctivae normal, anicteric sclerae ENMT: external ear and nose normal, oropharynx normal Neck: trachea midline, no thyromegaly Respiratory: normal respiratory effort, lungs clear to auscultation Cardiovascular: RRR, no murmur, no edema Heart Sounds: normal S1 and normal S2 Gastrointestinal (Abdomen): normal bowel sounds, soft, nontender, no hepatosplenomegaly Musculoskeletal: Head/Neck/Chest: normocephalic, head atraumatic and neck supple; full ROM of neck, normal inspection of chest wall and normal palpation of chest wall Spine: no cervical muscular tenderness and no cervical spasm Extremities: extremities normal to inspection; no cyanosis and no clubbing Skin: no rashes, warm and dry Neurologic: deep tendon reflexes 2+ bilaterally (In bilateral biceps, triceps , brachioradialis, patellar and Achilles), moves all extremities (5 out of 5 strength throughout upper and lower extremities bilaterally) and awake; no focal motor deficits (Sensation intact to light touch throughout upper and lower extremities bilaterally) Motor/Sensory: no tremor Gait: no ataxic gait (Normal tandem gait) and no wide-based gait Psychiatric: A+Ox3, euthymic affect Results & Data Laboratory Results 04/03/18 04/03/18 04/03/18 Range/Units 04:20 04:20 04:20 WBC 7.18 (4.8-10.8) K/uL RBC 3.82 L (4.2-5.4) M/uL Hgb 11.2 L (12.0-16.0) g/dL Hct 33.6 L (37-47) % MCV 88.0 (80-100) fL MCH 29.3 (25-34) pg MCHC 33.3 (32-36) g/dL RDW Std Deviation 45.3 (36.4-46.3) fL RDW Coeff of Lesly 14.0 (11.5-14.5) % Plt Count 167 (130-400) K/uL MPV 10.4 (7.4-10.4) fL Immature Gran % (Auto) 0.1 % Neut % (Auto) 59.4 % Lymph % (Auto) 31.2 % [place] % (Auto) 7.9 % Eos % (Auto) 1.1 % Baso % (Auto) 0.3 % Immature Gran # (Auto) 0.01 (0.00-0.02) K/uL Neut # (Auto) 4.26 (1.4-6.5) K/uL Lymph # (Auto) 2.24 (1.2-3.4) K/uL [place] # (Auto) 0.57 (0.11-0.59) K/uL Eos # (Auto) 0.08 (0-0.5) K/uL Baso # (Auto) 0.02 (0-0.2) K/uL Sodium 139 (136-145) mmol/L Potassium 3.8 (3.5-5.1) mmol/L Chloride 108 H (98-107) mmol/L Carbon Dioxide 26 (21-32) mmol/L Anion Gap 5.0 (3-11) BUN 17 (7-18) mg/dl Creatinine 0.72 (0.6-1.2) mg/dl Est Cr Clr Drug Dosing 76.0 ml/min Est GFR ( Amer) 103.3 Est GFR (Non-Af Amer) 89.1 BUN/Creatinine Ratio 23.3 H (10-20) Glucose 89 (70-99) mg/dl Estimat Average Glucose 105 mg/dl Hemoglobin A1c 5.3 (4.5-5.6) % Calcium 8.6 (8.5-10.1) mg/dl Magnesium 2.0 (1.8-2.4) mg/dl Troponin I 10.800 H* (0-0.045) ng/ml Triglycerides 106 (0-150) mg/dl Cholesterol 160 (0-200) mg/dl LDL Cholesterol, Calc 86 mg/dl VLDL Cholesterol, Calc 21 mg/dl HDL Cholesterol 53 mg/dl Cholesterol/HDL Ratio 3 04/02/18 04/02/18 Range/Units 20:36 13:55 WBC (4.8-10.8) K/uL RBC (4.2-5.4) M/uL Hgb (12.0-16.0) g/dL Hct (37-47) % MCV (80-100) fL MCH (25-34) pg MCHC (32-36) g/dL RDW Std Deviation (36.4-46.3) fL RDW Coeff of Lesly (11.5-14.5) % Plt Count (130-400) K/uL MPV (7.4-10.4) fL Immature Gran % (Auto) % Neut % (Auto) % Lymph % (Auto) % [place] % (Auto) % Eos % (Auto) % Baso % (Auto) % Immature Gran # (Auto) (0.00-0.02) K/uL Neut # (Auto) (1.4-6.5) K/uL Lymph # (Auto) (1.2-3.4) K/uL [place] # (Auto) (0.11-0.59) K/uL Eos # (Auto) (0-0.5) K/uL Baso # (Auto) (0-0.2) K/uL Sodium (136-145) mmol/L Potassium (3.5-5.1) mmol/L Chloride (98-107) mmol/L Carbon Dioxide (21-32) mmol/L Anion Gap (3-11) BUN (7-18) mg/dl Creatinine (0.6-1.2) mg/dl Est Cr Clr Drug Dosing ml/min Est GFR ( Amer) Est GFR (Non-Af Amer) BUN/Creatinine Ratio (10-20) Glucose (70-99) mg/dl Estimat Average Glucose mg/dl Hemoglobin A1c (4.5-5.6) % Calcium (8.5-10.1) mg/dl Magnesium (1.8-2.4) mg/dl Troponin I 11.300 H* 5.060 H* (0-0.045) ng/ml Triglycerides (0-150) mg/dl Cholesterol (0-200) mg/dl LDL Cholesterol, Calc mg/dl VLDL Cholesterol, Calc mg/dl HDL Cholesterol mg/dl Cholesterol/HDL Ratio _ (1) GERD (gastroesophageal reflux disease) Esophagitis presence: esophagitis presence not specified Qualified Code(s): K21.9 - Gastro-esophageal reflux disease without esophagitis (2) Degenerative disc disease Spinal region: unspecified cervical region Mid-cervical spinal level: Qualified Code(s): M50.30 - Other cervical disc degeneration, unspecified cervical region
[2018-04-03] MEDS: CYCLOBENZAPRINE HCL 10 MG TAB PO PRN (12:55)
--- NOTE | 2018-04-03 15:38 | Cardiology Progress Note ---
Date of Service April 03, 2018 Assessment & Plan (1) ST elevation (STEMI) myocardial infarction involving right coronary artery: 2. Nonsustained VT 3. Preserved LV function, inferior hypokinesis 4. Fibromyalgia/degenerative disc disease No recurrent presenting chest pain. Hemodynamically stable overnight. Brief episodes of nonsustained VT. Troponin peaked at 11, LV function preserved. No access site complications. With ventricular ectopy will increase metoprolol to 25 mg twice daily Continue dual antiplatelet therapy with aspirin, Brilinta Continue current MARTHA inhibitor Continue high intensity statin Symptom management for noncardiac, musculoskeletal shoulder pain From a cardiac standpoint okay for transfer to telemetry today. Up walking the halls later today. If stable overnight possible discharge tomorrow with cardiac follow-up 2 weeks. Appreciate ICU and hospital medicine care Subjective No recurrent presenting chest pain overnight. Still with mild left neck/ shoulder pain improved with Flexeril/heating pad. Echocardiogram reviewedLV function preserved EF 60-65% with mild inferior hypokinesis Telemetry reviewedintermittent ventricular ectopy, NSVT longest 14 beats asymptomatic Review of Systems All systems reviewed & are unremarkable except as noted in HPI & below Physical Exam 2 Vital Signs (Past 24 Hours): Last Vital Signs Temp 36.5 C 04/03/18 12:48 Pulse 72 04/03/18 12:48 Resp 20 04/03/18 12:48 BP 122/74 04/03/18 12:48 Pulse Ox 96 04/03/18 12:48 Physical Exam: General: Comfortable, no acute distress Eyes: Sclerae anicteric, extraocular movements intact HENT: Oropharynx clear mucous membranes moist Neck: Normal carotid upstrokes, no bruits. No JVD. Lungs: Clear to auscultation bilaterally, no rhonchi or wheezes Cardiac: Regular rate and rhythm, no murmurs, rubs or gallops. Vascular: Right radial artery access site with no ecchymosis, hematoma. Distal pulse and sensation intact. Abdomen: Soft, nontender, nondistended, positive bowel sounds. Extremities: Well perfused, no peripheral edema Skin: No rashes or lesions. Neuro: Nonfocal Psych: Alert orient x3, normal affect and mood
--- NOTE | 2018-04-03 15:41 | Critical Care Progress Note ---
Date of Service April 03, 2018 Assessment & Plan (1) ST elevation (STEMI) myocardial infarction involving right coronary artery: Impression: 1. ST elevation [place], status post ROSCOE in the RCA. 2. Hiatal hernia with persistent epigastric discomfort related to it. 3. 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 4. Occasional PVCs. Plan: 1. Continue with antiplatelet therapy. 2. Occasional PVCs, less than yesterday. 3. Start the patient on Protonix twice daily. History of hiatal hernia and she is on aggressive antiplatelet therapy. 4. Normalization of ST segment on EKG. 5. Oxycodone 5 mg p.o. every 4 hours as needed for pain. 6. The patient is not fit for MRI of the cervical spine at the moment, can be done as an outpatient. 7. Oral intake is adequate. 8. Discussed with the family and the patient at the bedside. 9. Transferred to telemetry if okay with cardiology. Critical care time spent with the patient was 35 minutes. Thank you, will follow as needed. Subjective Overall improving, continue to have symptoms related to her cervical radiculopathy. Physical Exam 2 Vital Signs (Past 24 Hours): Last Vital Signs Temp 36.5 C 04/03/18 12:48 Pulse 72 04/03/18 12:48 Resp 20 04/03/18 12:48 BP 122/74 04/03/18 12:48 Pulse Ox 96 04/03/18 12:48 Physical Exam: No chest pain, vital signs are stable, occasional PVCs, S1-S2, no JVP, regular rate and rhythm, distant breath sounds, abdomen is benign, no edema. Results & Data Laboratory Results Labs were reviewed, all acceptable. Diagnostic Findings No new imaging.
[2018-04-04 04:51] LABS: Hematocrit (blood only) 37.3 % (37-47); Hemoglobin 12.6 g/dL (12.0-16.0); Mean Corpuscular Hgb Conc 33.8 g/dL (32-36); Mean Corpuscular Volume 87.1 fL (80-100); Mean Platelet Volume 10.7 fL (7.4-10.4); Platelet Count 185 K/uL (130-400); RDW Standard Deviation 44.4 fL (36.4-46.3); Red Blood Count 4.28 M/uL (4.2-5.4); White Blood Count 6.67 K/uL (4.8-10.8)
[2018-04-04 05:22] LABS: BUN Creatinine Ratio 23.4 (10-20); Calcium 9.1 mg/dl (8.5-10.1); Creatinine Clr Calc Pharmacy 79.7 ml/min; Est GFR (African American) 107.4; Est GFR (Non-African American) 92.6; Potassium 3.9 mmol/L (3.5-5.1)
[2018-04-04] MEDS: PANTOprazole 40 MG TAB PO SCH (08:31)
[2018-04-04] MEDS: METOPROLOL TARTRATE 25 MG TAB PO SCH (08:31)
[2018-04-04] MEDS: ATORVASTATIN 40 MG TAB PO SCH (08:31)
[2018-04-04] MEDS: TICAGRELOR 90 MG TAB PO SCH (08:32)
[2018-04-04] MEDS: LISINOPRIL 5 MG TAB PO SCH (08:32)
[2018-04-04] MEDS: ASPIRIN 81 MG ECTAB PO SCH (08:32)
--- NOTE | 2018-04-04 09:16 | Discharge Summary ---
Date of Service April 04, 2018 Admission HPI Per Admitting Provider This patient is a 62-year-old female with history of osteopenia and GERD who presents to the ER with acute onset of left-sided chest pain radiating to the left jaw and worship and into the left shoulder blade and left shoulder. She reports she has had symptoms of left-sided neck pain and some burning in the left chest with radiation in the shoulder off and on for the last month but not as severe as upon this presentation. She was taking ranitidine as needed for what she thought was acid reflux with the burning in the chest. The pain was coming on both at rest and with exertion. She had x-rays of the neck and was thought to have degenerative disc disease of the C-spine. Last night though, she had severe chest pain, associated with nausea and diaphoresis. In the ER, she was found to have an inferior ST elevation AL with reciprocal changes in the lateral leads. She was taken urgently to the cardiac [facility] where she had complete occlusion of her RCA which was stented. She had mild to moderate disease elsewhere. She was loaded with Brilinta, was hemodynamically stable, and was transferred to the ICU for admission. Principal Diagnosis STEMI Discharge Exam Constitutional WD/WN, vitals as above Eyes PERRL, conjunctivae normal, anicteric sclerae ENMT external ear and nose normal, oropharynx normal Neck trachea midline, no thyromegaly Respiratory normal respiratory effort, lungs clear to auscultation Cardiovascular RRR, no murmur, no edema Heart Sounds: normal S1 and normal S2 Vessels: no JVD, no carotid bruit and no abdominal aortic bruit Gastrointestinal (Abdomen) normal bowel sounds, soft, nontender, no hepatosplenomegaly Musculoskeletal Head/Neck/Chest: normocephalic, head atraumatic and neck supple; full ROM of neck, normal inspection of chest wall and normal palpation of chest wall Spine: no cervical muscular tenderness and no cervical spasm Extremities: extremities normal to inspection; no cyanosis and no clubbing Skin no rashes, warm and dry Neurologic deep tendon reflexes 2+ bilaterally (In bilateral biceps, triceps, brachioradialis, patellar and Achilles), moves all extremities (5 out of 5 strength throughout upper and lower extremities bilaterally) and awake; no focal motor deficits (Sensation intact to light touch throughout upper and lower extremities bilaterally) Motor/Sensory: no tremor Gait: no ataxic gait (Normal tandem gait) and no wide-based gait Psychiatric A+Ox3, euthymic affect Genitourinary normal external appearance Lymphatic no cervical lymphadenopathy Discharge Data Allergies Allergy/AdvReac Type Severity Reaction Status Date / Time No Known Allergies Allergy Unverified 04/02/18 06:31 Consultations Group Exercise Manager Cardiac Rehabilitation Routine Cardiology Procedures Performed Operation Date: 04/02/18 06:20 Actual Procedures s Cineradiography w/Routine Exam - Manuel Arteaga MD p Aspiration/PCI w/ROSCOE for Stemi - Manuel Arteaga MD s Cath, Left with Cors and Vent(Not Applicable) - Manuel Arteaga MD Ordered Studies 04/02/18 06:21 CL Cath Imgs for PACS use only Stat CXR Hospital Course (1) ST elevation (STEMI) myocardial infarction involving right coronary artery: This patient is a 62-year-old female with history of osteopenia and GERD who presents to the ER with acute onset of left-sided chest pain radiating to the left jaw and worship and into the left shoulder blade and left shoulder. She reports she has had symptoms of left-sided neck pain and some burning in the left chest with radiation in the shoulder off and on for the last month but not as severe as upon this presentation. She was taking ranitidine as needed for what she thought was acid reflux with the burning in the chest. The pain was coming on both at rest and with exertion. She had x-rays of the neck and was thought to have degenerative disc disease of the C-spine. On the night of admission, she had severe chest pain, associated with nausea and diaphoresis which was new for her. In the ER, she was found to have an inferior ST elevation AL with reciprocal changes in the lateral leads. She was taken urgently to the cardiac [facility] where she had complete occlusion of her RCA which was stented. She had mild to moderate disease elsewhere. She was loaded with Brilinta, was hemodynamically stable, and was transferred to the ICU for admission. Remains chest pain-free, continues with musculoskeletal related complaints to the neck which are improved but still present With some nonsustained ventricular tachycardia likely secondary to myocardial reperfusion-now resolved on day of discharge Echocardiogram with inferior wall hypokinesis but normal EF ECG with evolving changes of inferior infarct Lipid panel actually looks excellent, hemoglobin A1c is normal at 5.3% Troponin peaked at 11 and is then trended back downward -continue Brilinta 90 mg p.o. twice daily -Continue aspirin 81 mg once daily -Continue metoprolol 12.5 mg p.o. twice daily -Continue lisinopril 5 mg once daily -Continue atorvastatin high intensity 80 mg once daily -gave Rx for SL NTG for prn chest pain use -Will need cardiac rehab and cardiology follow-up as an outpatient-she wishes to continue following with [facility] cardiology after discharge (although she lives in [place]) -Discussed case with Cardiology and stable for dc to home (2) Shoulder pain, left: Ongoing along with left-sided neck pain and actually with radiation down the bilateral upper extremities left greater than right. ECG performed during episode of this after her cath and stent placement was without acute ischemia She has a completely nonfocal neurological exam and no evidence on exam of cervical myelopathy This is certainly not an urgent issue and can be treated with muscle relaxers, heating pad, and physical therapy as an outpatient -Discussed this with the patient and could pursue an MRI of the cervical spine as an outpatient if these conservative measures are not improving her symptoms -Continue pain control with Tylenol as needed, as well as cyclobenzaprine as needed for muscle spasm (3) Osteopenia: Stable -Held home vitamin D for now and can restart on discharge (4) GERD (gastroesophageal reflux disease): Has history of heartburn, with hiatal hernia on chest x-ray. Was taking ranitidine at home. -Was started on Protonix 40 mg p.o. twice daily by the commanding officer homicide squad, however patient is hesitant to take a PPI long-term given its propensity and correlation with osteoporosis -She will continue ranitidine upon discharge on an as needed basis -She was also encouraged to lose weight in the abdomen which will help with GERD symptoms (5) Degenerative disc disease: In the cervical spine as above in "left shoulder pain" (6) Nonsustained ventricular tachycardia: With 3-14 beat runs, likely secondary to myocardial reperfusion in the 24 hrs after STEMI with stent placement -Continue beta-digna (7) DVT prophylaxis: Aspirin, Brilinta FERN hose Disposition-stable for dc to home Total Time Total Time Spent Total Time Spent (In Minutes): >30 min Total Time Includes: Examination of the Patient, Discharge Planning, Medication Reconciliation and Communication With Other Providers (Cardiology) Discharge Plan Discharge Items Patient Disposition: Home - Self-Care Reason For Visit: ST Elevation Myocardial Infarction Discharge Diagnosis: ST Elevation Myocardial Infarction Condition: Good Discharge Goals: Decrease discomfort, Diagnostic testing, Improve disease control and Therapeutic intervention Activity: As commented below Lifting: None Bathing: No limitations Exercise/Sports: Wait until after follow-up appointment Exercise Comment: You have been referred for cardiac rehabilitation Driving/Machine Use: Resume 1 day after discharge Non-emergency contact: Primary Care Provider and Residential Real Estate Agent Call non-emergency contact if: you have any medication questions, your symptoms worsen, your pain is not controlled, your pain is worsening, your pain is unusual for you, your pain is concerning for you, your wound has increased redness, your wound has increased drainage and your wound pain has increased Follow-up/Referrals: Manuel Arteaga MD [Physician] - 04/17/18 2:10 pm (Please, follow up at [facility] Cardiology Office with Dr. Leon Arteaga on April 17 at 2:10 pm. *This office is located in [address] of [facility] [employer] [facility] building next to [facility]. If you need to change this appointment, call the office at [phone].) Venkata Key MD [Primary Care Provider] - 04/07/18 1:15 pm (Please, follow up at [facility] with Dr. Key's reproductive healthcare assistant, Jason Zapien PA-C, on SaturdayApril 07 at 1:15 pm. *If you need to change this appointment, call their office at [phone].) Diet: Heart Healthy Add Provider Instructions: Home Care: * Take your medications exactly as directed. Don't skip doses. * Remember that recovery after a heart attack takes time. Plan to rest for at lease 4-8 weeks while you recover. Then return to normal activity when your doctor says it's okay. * Ask your doctor about joining a heart rehabilitation program. * Tell your doctor if you are feeling depressed. Feelings of sadness are common after a heart attack, but it is important that you speak to someone if you are feeling overwhelmed by these feelings. * If you are having chest pain, call 911 for an ambulance. Do NOT drive yourself to the hospital. * Ask your family members to learn CPR. * Learn to take your own blood pressure and pulse. Keep a record of your results. Ask your doctor when you should seek emergency medical attention. He or she will tell you which blood pressure reading is dangerous. Lifestyle Changes: * Maintain a healthy weight. Get help to lose any extra pounds. * Cut back on salt. * Limit canned, dried, packaged, and fast foods. * Don't add salt to your food. * Season foods with herbs instead of salt when you cook. * Break the smoking habit. Enroll in a stop-smoking program to improve your chances of success. * Limit fatty foods. * Ask your doctor about having your lipid levels checked regularly. * Build up your activity according to your doctor's recommendation. * Ask your doctor when it's okay to resume sexual activity. * Tell your doctor about any erectile dysfunction (ED) medication you are taking. Some ED medications are not safe if you take certain heart medications. * Try to manage stress. Follow Up: It is important for you to keep your follow up appointments with your medical provider. ACTIVITY RECOMMENDATIONS: Excess manipulation of the wrist should be avoided for the next 24-48 hours. * No lifting over 2 pounds (approximately a 1/2 gallon of milk) with the utilized arm for 24 hours. * No strenuous activity such as bowling or tennis for 3 days. * Keep the site of the procedure covered with a bandage for 24 hours. *You may shower the day after the procedure. Do not take a tub bath or submerge the puncture site in water for the next 3 days. *Do not operate any motorized equipment for 3 days. SPECIAL CARE INSTRUCTIONS: The site may be slightly bruised and sore following your procedure. Should any of the following occur, contact the Dr. who performed your procedure. 1. Redness/inflammation, swelling, chills, or fever, or colored drainage at procedure site within 3-7 days after your procedure. 2. Coldness, discoloration, ongoing numbness, severe pain, or swelling. Expect mild tingling of hand and tenderness at the puncture site for up to three days. If this persists beyond three days, or other symptoms develop, notify the Dr. who performed your procedure. BLEEDING: If the procedure site on your wrist begins to bleed, do not panic 1. Place 1 or 2 fingers firmly just slightly above the insertion site to stop the bleeding. You may be able to feel your pulse as you hold pressure. 2. Lift your finger after 5 minutes to see if the bleeding has stopped. 3. Once the bleeding has stopped, gently wipe the wrist area clean with a bandage. * If the bleeding from your wrist does not stop after 10 minutes, or if there is a large amount of bleeding or spurting, call 911 (do not drive yourself to the hospital). SKIN IRRITATION: * You may experience some redness and/or swelling in the area where radiation was administered. If any skin irritation occurs, please contact your family physician. FOLLOW UP VISIT: Keep any scheduled doctor appointments. Prescriptions: New cyclobenzaprine 10 mg Tablet 10 mg PO TID PRN (Reason: muscle spasm) Qty: 15 RF: 0 ticagrelor [Brilinta] 90 mg Tablet 90 mg PO BID Qty: 60 RF: 0 atorvastatin 80 mg tablet 80 mg PO QAM Qty: 30 RF: 0 lisinopril [Zestril] 5 mg Tablet 5 mg PO QAM Qty: 30 RF: 0 acetaminophen [Mapap (acetaminophen)] 325 mg Tablet 650 mg PO Q4H PRN (Reason: pain) Qty: 30 RF: 0 metoprolol tartrate 25 mg Tablet 25 mg PO BID Qty: 60 RF: 0 aspirin [Ecotrin Low Strength] 81 mg Tablet,Delayed Release (Dr/Ec) 81 mg PO QAM Qty: 30 RF: 0 nitroglycerin 0.4 mg tablet, sublingual 0.4 mg Sublingual Q5M PRN (Reason: chest pain) Qty: 15 RF: 0 Continue cholecalciferol (vitamin D3) [Vitamin D3] 2,000 unit Tablet 2,000 unit PO DAILY RF: 0 ranitidine HCl 150 mg Tablet 150 mg PO DAILY PRN (Reason: Heartburn) RF: 0 Visit Report Forms: [employer] Portal Stand-Alone Forms: [employer], Work/School Release (Inpt) Discharge Orders: Discharge Order (Routine); Ordered 04/04/18 Ordered By: Dee Puga Admission Data Admit Date/Time: 04/02/18 07:07 Attending Provider: Dee Puga Admit Provider: Manuel Arteaga Primary Care Provider: Venkata Key Other Providers: Manuel Arteaga Anas Service: Intensive Care Unit Other Interventions: Discharge Summary Assessment (RN) Last Done: 04/04/18 10:31 Pending Studies at Discharge: No DC Date/Time DO NOT enter until pt leaves facility: 04/04/18 13:20
--- NOTE | 2018-04-04 10:22 | Cardiology Progress Note ---
Date of Service April 04, 2018 Assessment & Plan (1) ST elevation (STEMI) myocardial infarction involving right coronary artery: She is status post STEMI with mid RCA occlusion status post 3 x 34 mm Lebron ROSCOE, post dilated with 3.5 mm noncompliant balloon. She has not had any further angina. She appears euvolemic. She has normal LV systolic function. Recommend cardiac rehabilitation which she is already arranging. Recommend aspirin 81 mg daily without interruption indefinitely. Recommend Brilinta for at least 1 year, without interruption. She has follow-up with Dr. Arteaga already scheduled in approximately 2 weeks. High-intensity statin therapy. Continue MARTHA-inhibitor and beta-digna. P.r.n. nitroglycerin recommended upon discharge for recurrent angina. She was instructed to call 911 for angina that does not resolve within 5 minutes of nitroglycerin. (2) Nonsustained ventricular tachycardia: No further ventricular tachycardia. She did have a very short run of AIVR and was asymptomatic. Continue beta-digna. (3) Disposition: Okay for discharge from a cardiac perspective. Patient care communicated with Dr. Puga. Follow-up with Dr. Arteaga as scheduled in approximately 2 weeks. Subjective She denies chest pain, shortness of breath, syncope, near-syncope, palpitations , edema, or bleeding. She has ambulated without exertional symptoms. She is already making arrangements for cardiac rehab closer to home. Review of systems: As above. Physical Exam 2 Vital Signs (Past 24 Hours): Last Vital Signs Temp 36.8 C 04/04/18 08:27 Pulse 96 H 04/04/18 09:00 Resp 13 04/04/18 09:00 BP 110/60 04/04/18 08:27 Pulse Ox 98 04/04/18 08:27 Intake & Output 04/02/18 04/03/18 04/04/18 04/05/18 06:59 06:59 06:59 06:59 Intake Total 1501.667 / 1501.66 7 1370 / 1370 480 / 480 Balance 1501.667 / 1501.66 7 1370 / 1370 480 / 480 Weight 75.2 kg 76.1 kg 75.6 kg Physical Exam: Gen.: No acute distress. Alert and oriented. HEENT: Anicteric sclera. Neck: No JVD. Cardiac: Regular. Normal S1-S2. No audible murmurs, rubs, or gallops. Pulmonary: Clear to auscultation bilaterally without wheezes, rales, or rhonchi. Abdomen: Soft, nontender, nondistended, with normoactive bowel sounds. No bruits noted. Extremities: No edema or cyanosis. Right radial cath site is clean, dry, and intact without erythema or discharge. 2+ right radial pulse. Psychiatric: Affect appears appropriate. Results & Data Laboratory Results Laboratory Results - last 24 hr 04/04/18 04/04/18 04:27 04:27 WBC 6.67 RBC 4.28 Hgb 12.6 Hct 37.3 MCV 87.1 MCH 29.4 MCHC 33.8 RDW Std Deviation 44.4 RDW Coeff of Lesly 14.0 Plt Count 185 MPV 10.7 H Sodium 139 Potassium 3.9 Chloride 107 Carbon Dioxide 27 Anion Gap 5.0 BUN 16 Creatinine 0.69 Est Cr Clr Drug Dosing 79.7 Est GFR ( Amer) 107.4 Est GFR (Non-Af Amer) 92.6 BUN/Creatinine Ratio 23.4 H Glucose 83 Calcium 9.1 Diagnostic Findings Telemetry personally reviewed: Sinus rhythm. there were 2 episodes of AIVR overnight with the longest being 4-5 beats. No further ventricular tachycardia. Echo 04/02/2018: Normal LV size and systolic function. EF 60-65%. Hypokinetic inferior wall. No significant valvular abnormalities. Medications Administered Current Inpatient Medications Acetaminophen (Tylenol) 650 mg PO Q4H PRN PRN Reason: Mild Pain (scale 1-3) Stop: 05/02/18 07:48 Last Admin: 04/03/18 12:55 Dose: 650 mg Aspirin (Ecotrin) 81 mg PO [facility] Stop: 05/02/18 08:59 Last Admin: 04/04/18 08:32 Dose: 81 mg Atorvastatin Calcium (Lipitor) 80 mg PO [facility] Stop: 05/02/18 08:59 Last Admin: 04/04/18 08:31 Dose: 80 mg Cyclobenzaprine HCl (Flexeril) 10 mg PO TID PRN PRN Reason: Pain Stop: 05/02/18 17:17 Last Admin: 04/03/18 12:55 Dose: 10 mg Lisinopril (Zestril) 5 mg PO [facility] Stop: 05/03/18 08:59 Last Admin: 04/04/18 08:32 Dose: 5 mg Metoprolol Tartrate (Lopressor) 25 mg PO BID [facility] Stop: 05/03/18 20:59 Last Admin: 04/04/18 08:31 Dose: 25 mg Oxycodone HCl (Roxicodone Immediate Rel) 5 mg PO Q4H PRN PRN Reason: Pain Stop: 04/16/18 14:45 Last Admin: 04/03/18 00:05 Dose: 5 mg Pantoprazole Sodium (Protonix) 40 mg PO BID [facility] Stop: 05/02/18 20:59 Last Admin: 04/04/18 08:31 Dose: 40 mg Ticagrelor (Brilinta) 90 mg PO BID [facility] Stop: 05/02/18 20:59 Last Admin: 04/04/18 08:32 Dose: 90 mg
== END 2018-04-04 13:20 | disposition home or self-care (01) | DRG 247 ==
LOC: ED 05:17 → 1E 06:37 → SUATTDRO 07:07 → 1E 07:07

== ENCOUNTER 2019-03-22 02:13 | Inpatient (IN) ==
[2019-03-22] MEDS ORDERED: ASPIRIN CHEW 324 MG PO STA (02:28)
[2019-03-22] MEDS ORDERED: NITROGLYCERIN 2% OINTMENT 30GM TUBE EXT ONE (02:28)
[2019-03-22] MEDS ORDERED: NITROGLYCERIN SL 0.4 MG/TAB TAB SL STA (02:28)
[2019-03-22 02:48] LABS: Basophils # (auto) 0.03 K/uL (0-0.2); Basophils % (auto) 0.4 %; Eosinophils # (auto) 0.11 K/uL (0-0.5); Eosinophils % (auto) 1.6 %; Hemoglobin 12.8 g/dL (12.0-16.0); Immature Granulocytes # (auto) 0.01 K/uL (0.00-0.02); Immature Granulocytes % (auto) 0.1 %; Lymphocytes # (auto) 2.27 K/uL (1.2-3.4); Lymphocytes % (auto) 33.7 %; Mean Corpuscular Hemoglobin 29.8 pg (25-34); Mean Corpuscular Hgb Conc 33.7 g/dL (32-36); Mean Corpuscular Volume 88.6 fL (80-100); Mean Platelet Volume 10.7 fL (7.4-10.4); Monocytes # (auto) 0.59 K/uL (0.11-0.59); Monocytes % (auto) 8.8 %; Neutrophils # (auto) 3.72 K/uL (1.4-6.5); Neutrophils % (auto) 55.4 %; Platelet Count 198 K/uL (130-400); RDW Standard Deviation 45.3 fL (36.4-46.3); Red Blood Count 4.29 M/uL (4.2-5.4); White Blood Count 6.73 K/uL (4.8-10.8)
[2019-03-22 03:05] LABS: BUN Creatinine Ratio 27.3 (10-20); Blood Urea Nitrogen 18 mg/dl (7-18); Calcium 9.2 mg/dl (8.5-10.1); Carbon Dioxide 28 mmol/L (21-32); Chloride 109 mmol/L (98-107); Creatinine Clr Calc Pharmacy 76.5 ml/min; Est GFR (African American) 108.2; Est GFR (Non-African American) 93.4; Glucose 100 mg/dl (70-99); Magnesium 2.1 mg/dl (1.8-2.4); Potassium 3.8 mmol/L (3.5-5.1); Sodium 141 mmol/L (136-145)
[2019-03-22 03:10] LABS: Troponin I < 0.015 ng/ml (0-0.045)
[2019-03-22] MEDS ORDERED: HEPARIN SOD (PORCINE) 1000 UNIT/ML 10 ML VIAL ONE (04:19)
[2019-03-22] MEDS: HEPARIN SODIUM/DEXTROSE 25,000 UNITS/500 ML BAG IV SCH (04:24)
[2019-03-22] MEDS: NSS + 20MEQ KCL 20 MEQ/1,000 ML BAG IV SCH ×2 (04:24→14:42)
--- NOTE | 2019-03-22 04:54 | History & Physical Report ---
Date of Service March 22, 2019 Assessment & Plan (1) Unstable angina: Unstable angina- The patient will be admitted to telemetry for serial cardiac enzymes, serial EKG's, cardiac rhythm monitoring and a 2-D echocardiogram with Dopplers. Continue aspirin, Brilinta and lisinopril. Continue Nitropaste begun by the ED. Start heparin drip standard protocol. Start normal saline plus KCl 20 mEq at 100 mils per hour. Consult her physics technical officer Dr. Ata Arteaga, who performed her cardiac c atheterization on 04/02/2018 Present on Admission?: Yes (2) Coronary artery disease: CAD/inferior wall AK on 04/02/2018 /RCA stent placement on 04/02/2018/hypertension- Continue aspirin 81 mg daily, Brilinta 60 mg p.o. twice daily and lisinopril 5 mg p.o. daily. Present on Admission?: Yes (3) S/P right coronary artery (RCA) stent placement: Underwent cardiac catheterization on 04/02/2018 with RCA PCI stent placement Present on Admission?: Yes (4) Old inferior wall myocardial infarction: Noted on 04/02/2018 Present on Admission?: Yes (5) GERD (gastroesophageal reflux disease): She only uses ranitidine 150 mg p.o. daily as needed, has not experienced any recent reflux symptoms Present on Admission?: Yes (6) Hyperlipidemia LDL goal <70: Continue atorvastatin 20 mg p.o. daily. Present on Admission?: Yes History of Present Illness Chief Complaint: The patient presents to the emergency department with chest pain that woke her up from sleep at 1:00 this morning, has persisted, and thus presents to the emergency department for assessment. Primary Care Provider: Venkata Key MD The patient is a 63-year-old female with a past medical history including CAD, status post inferior wall STEMI and RCA PCI on 04/02/2018 with moderate residual proximal to mid LAD disease. She presents to the emergency department with persistent chest discomfort that began at 1:00 this morning when it awoke her from sleep. She reports that she did have a brief episode a few months ago, and her PCP had her undergo stress test which was abnormal. She was seen by Dr. Arteaga on 03/10/2019, and they discussed the possibility of cardiac catheterization, however, she decided that she would wait. Allergies Allergy/AdvReac Type Severity Reaction Status Date / Time No Known Drug Allergies Allergy Verified 03/10/19 14:58 Home Medications Home Medications Medication Instructions Recorded Confirmed Type cholecalciferol (vitamin D3) 2,000 unit PO DAILY 04/02/18 03/10/19 History [Vitamin D3] ranitidine HCl 150 mg PO DAILY PRN 04/02/18 03/10/19 History acetaminophen [Mapap 650 mg PO Q4H PRN #30 tab 04/04/18 03/10/19 Rx (acetaminophen)] aspirin [Ecotrin Low Strength] 81 mg PO QAM #30 tab 04/04/18 03/10/19 Rx cyclobenzaprine 10 mg PO TID PRN #15 tab 04/04/18 03/10/19 Rx lisinopril [Zestril] 5 mg PO QAM #30 tab 04/04/18 03/10/19 Rx metoprolol tartrate 25 mg PO BID #60 tab 04/04/18 03/10/19 Rx atorvastatin 20 mg tablet 20 mg PO DAILY 01/15/19 03/10/19 History nitroglycerin 0.4 mg sublingual 0.4 mg SUBLINGUAL Q5M PRN #15 tabs 01/15/19 03/10/19 Rx tablet ticagrelor 60 mg tablet 60 mg PO BID #60 tab 03/10/19 03/10/19 Rx Past Med/Surg History Medical History Degenerative disc disease GERD (gastroesophageal reflux disease) Osteopenia Surgical History History of section Family History Brother CAD (coronary artery disease), [place] coronary artery, Onset Age: 58 With CABG at age 58 Father CAD (coronary artery disease), [place] coronary artery, Onset Age: 79 With history of CABG, smoker Mother , Old age HTN (hypertension), benign Social History Preferred Language: Irish Communication Ability: Effective Enterprise Resource Planner Required: No Beliefs That Will Affect Care: Nondenominational Nondenominational Beliefs: jainism marital status: Current Living Situation: Spouse current occupational status: employed 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 [place] Feels Safe at Home: Yes Smoking Status: Never smoker Hx Alcohol Use: Yes (very minimal) Alcohol type: other Hx Substance Use: No Review of Systems Review of Systems: The patient denies palpitations, shortness of breath, dyspnea on exertion, cough, lower extremity swelling, sore throat, fevers, chills, sweats, weight change, fatigue, nausea, vomiting, diarrhea , constipation, abdominal pain, pelvic pain, blood in urine or stool, dysuria, urinary frequency or urgency, lightheadedness, dizziness, headache, memory loss, loss of consciousness, rash, abnormal bruising or bleeding, imbalance, focal or generalized weakness, numbness or tingling in arms or legs, generalized arthralgias or myalgias, back or neck pain, or night sweats. The review of systems is otherwise negative other than for that already noted above, and at least 10 systems have been reviewed. Physical Exam Physical Exam: The patient is awake, alert and oriented 3, well developed and well nourished, normocephalic and atraumatic, lying in bed and reports continued light substernal chest discomfort. HEENT--PERRL, EOMI, mucous membranes and oropharynx normal. Neck--supple. No JVD. No bruits. Thyroid normal, trachea midline, no adenopathy. Heart--normal S1 and S2. No murmurs, rubs or gallops. Lungs--clear bilaterally, no respiratory distress, no accessory muscle use. Abdomen--normal bowel sounds and soft. Nontender. Nondistended. Extremities--no cyanosis or clubbing. No edema. Dermatologic--normal skin turgor, normal color, no abnormal lymph nodes, no rash. Neurologic--cranial nerves II through XII grossly intact. Rheumatologic--normal range of motion. Psychiatric--normal affect. Results & Data Vital Signs (Past 12 Hours) Vital Signs Temp Pulse Pulse Resp BP BP Pulse Ox 03/22/19 04:28 72 18 104/68 97 03/22/19 02:16 97.3 F L 73 18 112/71 98 Laboratory Results Laboratory Results WBC 6.73 K/uL (4.8-10.8) 03/22/19 02:30 RBC 4.29 M/uL (4.2-5.4) 03/22/19 02:30 Hgb 12.8 g/dL (12.0-16.0) 03/22/19 02:30 Hct 38.0 % (37-47) 03/22/19 02:30 MCV 88.6 fL (80-100) 03/22/19 02:30 MCH 29.8 pg (25-34) 03/22/19 02:30 MCHC 33.7 g/dL (32-36) 03/22/19 02:30 RDW Std Deviation 45.3 fL (36.4-46.3) 03/22/19 02:30 RDW Coeff of Lesly 14.0 % (11.5-14.5) 03/22/19 02:30 Plt Count 198 K/uL (130-400) 03/22/19 02:30 MPV 10.7 fL (7.4-10.4) H 03/22/19 02:30 Immature Gran % (Auto) 0.1 % 03/22/19 02:30 Neut % (Auto) 55.4 % 03/22/19 02:30 Lymph % (Auto) 33.7 % 03/22/19 02:30 [place] % (Auto) 8.8 % 03/22/19 02:30 Eos % (Auto) 1.6 % 03/22/19 02:30 Baso % (Auto) 0.4 % 03/22/19 02:30 Immature Gran # (Auto) 0.01 K/uL (0.00-0.02) 03/22/19 02:30 Neut # (Auto) 3.72 K/uL (1.4-6.5) 03/22/19 02:30 Lymph # (Auto) 2.27 K/uL (1.2-3.4) 03/22/19 02:30 [place] # (Auto) 0.59 K/uL (0.11-0.59) 03/22/19 02:30 Eos # (Auto) 0.11 K/uL (0-0.5) 03/22/19 02:30 Baso # (Auto) 0.03 K/uL (0-0.2) 03/22/19 02:30 Sodium 141 mmol/L (136-145) 03/22/19 02:30 Potassium 3.8 mmol/L (3.5-5.1) 03/22/19 02:30 Chloride 109 mmol/L (98-107) H 03/22/19 02:30 Carbon Dioxide 28 mmol/L (21-32) 03/22/19 02:30 Anion Gap 4.0 (3-11) 03/22/19 02:30 BUN 18 mg/dl (7-18) 03/22/19 02:30 Creatinine 0.66 mg/dl (0.6-1.2) 03/22/19 02:30 Est Cr Clr Drug Dosing 76.5 ml/min 03/22/19 02:30 Est GFR ( Amer) 108.2 03/22/19 02:30 Est GFR (Non-Af Amer) 93.4 03/22/19 02:30 BUN/Creatinine Ratio 27.3 (10-20) H 03/22/19 02:30 Glucose 100 mg/dl (70-99) H 03/22/19 02:30 Calcium 9.2 mg/dl (8.5-10.1) 03/22/19 02:30 Magnesium 2.1 mg/dl (1.8-2.4) 03/22/19 02:30 Troponin I < 0.015 ng/ml (0-0.045) 03/22/19 02:30 Code Status & VTE Plan Code Status Full code VTE Prophylaxis Plan VTE Prophylaxis will be ordered: Yes PG Care Time/CCT Total # of Minutes Spent Total Time Spent with Patient: Total time spent is greater than 50% in coordination of care (as documented) at patient's floor/unit and/or counseling patient: (1) GERD (gastroesophageal reflux disease) Esophagitis presence: esophagitis presence not specified Qualified Code(s): K21.9 - Gastro-esophageal reflux disease without esophagitis
[2019-03-22] MEDS ORDERED: MAGNESIUM HYDROXIDE SUSP 30 ML UDC PO PRN (05:44)
[2019-03-22] MEDS ORDERED: ALUMINUM/MAGNESIUM SUSP 30 ML UDC PO PRN (05:44)
[2019-03-22] MEDS ORDERED: ONDANSETRON INJ 2 MG/ML 2 ML VIAL IV PRN (05:44)
[2019-03-22] MEDS ORDERED: ACETAMINOPHEN 325 MG TAB PO PRN (05:44)
[2019-03-22] MEDS ORDERED: NITROGLYCERIN SL 0.4 MG/TAB TAB SL PRN (05:44)
[2019-03-22] MEDS ORDERED: CYCLOBENZAPRINE HCL 10 MG TAB PO PRN (06:07)
--- NOTE | 2019-03-22 06:07 | XRay Report ---
XR chest 1V portable CLINICAL HISTORY: 63 years-old Female presenting with Left Chest Pain. TECHNIQUE: Portable upright AP view of the chest was obtained. COMPARISON: 04/02/2018. FINDINGS: Cardiomediastinal silhouette normal. No focal opacity. No large effusion or pneumothorax. Osseous str uctures normal. Moderate hiatal hernia suspected. IMPRESSION: 1. No acute cardiopulmonary disease. 2. Moderate hiatal hernia. Electronically signed by: Tariq Spears M.D. 03/22/2019 6:06 AM
--- NOTE | 2019-03-22 07:02 | Emergency Department Note ---
Entered by Scot Mai acting as a scribe for Gary Henning MD ED Provider Note Name: Katlyn Schreiber Age: 63 Arrives Via: Triage Informant: Self CC: Left sided chest pain HPI: 63 y/o female arrives for evaluation of constant left sided chest pain beginning 1.5 hours ago. The patient states she woke up 1.5 hours ago with left sided chest pain that radiated to her left neck, and left scapula. She reports she took two nitroglycerin and a baby aspirin. The patient notes she still has some left sided chest pain, and then nitroglycerin mildly helped. She states she has been baseline for the past few days. The patient reports she has a history of an [place] a year ago that presented with a headache and neck pain. She notes Dr. Arteaga placed her stents, and she has followed up with him. The patient states she ate spaghetti sauce for dinner but notes this does not feel like her GERD. She reports she currently takes Brilinta and does not take Coumadin. The patient denies nausea, vomiting, LOC, palpitations, sweating, and falling. ROS: See above HPI for pertinent positives & negatives. A total of 10 systems reviewed and were otherwise negative. Past Medical History: CAD, osteopenia, GERD, [place] Past Surgical History: , stent placement Family History: CAD, HTN Social History: . Never a smoker. Home Medications: See below Allergies None Physical: Vitals: BP 112/71, Pulse 73, Resp 18, Temp 97.3 F, O2Sat 98 on RA Exam: GENERAL: Patient is anxious appearing and in no acute distress. EYES: No scleral icterus, unremarkable pupils. ENT: Mucous membranes moist, no nasal congestion. NECK: No masses appreciated, no meningismus, trachea is midline. RESPIRATORY: No dyspnea. Clear to auscultation and equal bilaterally. No wheeze, no rhonchi. CARDIOVASCULAR: Regular rate and rhythm. No murmurs, rubs, gallops appreciated. GASTROINTESTINAL: Abdomen soft, non-tender, no peritonitis. Bowel sounds positive. No masses appreciated. BACK: No midline tenderness, no CVA tenderness EXTREMITIES: Normal motion all extremities, no cyanosis, no edema. NEUROLOGIC: Alert and oriented, no acute motor or sensory deficits, no focal weakness, cranial nerves grossly intact. SKIN: No rash, no jaundice, no diaphoresis. ED Course: Prior Medical Record, Triage/Nursing Notes, Medications, Allergies reviewed by Me Vital Signs: reviewed and remarkable for wnl Labs: Reviewed and remarkable for wnl cbc, bmp, trop Interventions: saline lock, heparin bolus gtt, asa 162mg PO, nitro sl/paste Imaging: X ray results are stated below per my interpretation: Chest: 1 view: No infiltrate, no effusion, normal cardiac border. EKG: Per My Interpretation: Indication Chest pain: NSR 74 bpm, qtc 430, no ectopy no ischemia though there is some mild inferior ST depression compared to 04/03/18. Consults: Hospitalist Reassessments/Times: 0224: Past medical records reviewed. The patient was evaluated in room A02. A complete history and physical exam was performed. Pt had an RCA stent placed in the 04/02/18. Of note there was residual moderate LAD disease. A recent stress test at outside hospital reveals ST depression with exertion. She has been advised to have a cardiac catheterization. Cardiology has advised low threshold for cardiac cath with recurrent symptoms. 0341: The patient has had complete resolution of her discomfort. I discussed all test results. She is agreeable to a hospitalist evaluation. 0414: I discussed the patient's case with Dr. Blas, [facility] [place] [place] Hospitalist. He is agreeable with a Heparin drip. He will evaluate the patient for further management and care. Blood pressure: Normal. No Referral necessary Disposition: Hospitalization Differentials: Cardiac Ischemia (STEMI, NSTEMI, Unstable Angina, etc), Aortic Dissection, Arrhythmia, Pulmonary Embolism, Pneumonia, Pneumothorax, MSK, Infectious, Pericarditis/Myocarditis, Esophageal Rupture, Gastrointestinal, amongst other pathologies entertained. Medical Decision Makin yr old female arrives for evaluation of left chest pain radiating to neck/shoulder. Admits gradually worsening. Review chart appears she failed recent stress testing. She had no stemi on EKG though inferior ST depression noted in single lead. No evidence dissection nor PE. She was given asa. Review with hospitalist who agree with starting heparin in high risk patient. She is aware risks of bleeding. Impression: Unstable angina Critical Care Time: I have personally spent greater than 35 minutes of critical care time in the direct management of this patient. Unstable angina started on heparin bolus/gtt. This was a life/limb threatening event. This includes time spent evaluating patient, direct bedside care, chart review, placing orders, interpretation of diagnostic studies, discussion with consultants, patient, and family members, as well as other required patient management activities. This 35 minutes is in excess of all separately billable procedures. Gary Henning MD The scribe's documentation has been prepared under my direction and personally reviewed by me in its entirety. I confirm that the note above accurately reflects all work, treatment, procedures, and medical decision making performed by me. Impression & Plan Unstable angina Past Med/Surg History Medical History (Updated 03/22/19 @ 05:02 by Victorino Blas MD) Degenerative disc disease GERD (gastroesophageal reflux disease) Hyperlipidemia LDL goal <70 Old inferior wall myocardial infarction Osteopenia Surgical History (Updated 03/22/19 @ 05:01 by Victorino Blas MD) History of section S/P right coronary artery (RCA) stent placement Family History Brother CAD (coronary artery disease), [place] coronary artery, Onset Age: 58 With CABG at age 58 Father CAD (coronary artery disease), [place] coronary artery, Onset Age: 79 With history of CABG, smoker Mother , Old age HTN (hypertension), benign Social History Preferred Language: Nauruan Communication Ability: Effective Furniture Painter Required: No Beliefs That Will Affect Care: None marital status: Current Living Situation: Spouse current occupational status: employed 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 [place] Feels Safe at Home: Yes Smoking Status: Never smoker Hx Alcohol Use: Yes ("rarely") Alcohol type: other Hx Substance Use: No Results & Data Vital Signs Vital Signs - 24 hr 03/22/19 02:16 03/22/19 02:28 03/22/19 02:30 Temperature 36.3 C L Temperature Source Oral Pulse Rate 73 69 68 Pulse Rate [Apical] Pulse Rate from SpO2 Sensor Respiratory Rate 18 20 25 H Respiratory Effort / Characteristics Non-Labored Respiratory Depth Normal Respiratory Pattern Regular Blood Pressure 112/71 Blood Pressure [Right Arm] Blood Pressure Mean 84 Blood Pressure Mean [Right Arm] Pulse Oximetry 98 Oxygen Delivery Method Room Air Sepsis Recent Fever Within 48 Hours No Sepsis Action Taken by Nursing No Action Required Pulse Oximetry Post Tiitration 12/15/19 02:35 03/22/19 02:40 03/22/19 02:42 Temperature Temperature Source Pulse Rate 67 66 Pulse Rate [Apical] Pulse Rate from SpO2 Sensor 67 67 Respiratory Rate 25 H 14 Respiratory Effort / Characteristics Respiratory Depth Respiratory Pattern Blood Pressure 117/71 Blood Pressure [Right Arm] Blood Pressure Mean 79 Blood Pressure Mean [Right Arm] Pulse Oximetry 98 98 Oxygen Delivery Method Room Air Sepsis Recent Fever Within 48 Hours Sepsis Action Taken by Nursing Pulse Oximetry Post Tiitration 95 03/22/19 02:50 03/22/19 03:00 03/22/19 03:10 Temperature Temperature Source Pulse Rate 70 67 64 Pulse Rate [Apical] Pulse Rate from SpO2 Sensor 68 67 63 Respiratory Rate 13 14 14 Respiratory Effort / Characteristics Respiratory Depth Respiratory Pattern Blood Pressure Blood Pressure [Right Arm] Blood Pressure Mean Blood Pressure Mean [Right Arm] Pulse Oximetry 94 96 96 Oxygen Delivery Method Sepsis Recent Fever Within 48 Hours Sepsis Action Taken by Nursing Pulse Oximetry Post Tiitration 03/22/19 03:20 03/22/19 03:30 03/22/19 03:40 Temperature Temperature Source Pulse Rate 63 64 67 Pulse Rate [Apical] Pulse Rate from SpO2 Sensor 63 64 67 Respiratory Rate 14 16 22 Respiratory Effort / Characteristics Respiratory Depth Respiratory Pattern Blood Pressure Blood Pressure [Right Arm] Blood Pressure Mean Blood Pressure Mean [Right Arm] Pulse Oximetry 96 96 97 Oxygen Delivery Method Sepsis Recent Fever Within 48 Hours Sepsis Action Taken by Nursing Pulse Oximetry Post Tiitration 03/22/19 03:50 03/22/19 04:00 03/22/19 04:10 Temperature Temperature Source Pulse Rate 69 67 66 Pulse Rate [Apical] Pulse Rate from SpO2 Sensor 76 69 65 Respiratory Rate 13 18 15 Respiratory Effort / Characteristics Respiratory Depth Respiratory Pattern Blood Pressure Blood Pressure [Right Arm] Blood Pressure Mean Blood Pressure Mean [Right Arm] Pulse Oximetry 94 96 96 Oxygen Delivery Method Sepsis Recent Fever Within 48 Hours Sepsis Action Taken by Nursing Pulse Oximetry Post Tiitration 03/22/19 04:20 03/22/19 04:23 03/22/19 04:28 Temperature Temperature Source Pulse Rate 67 66 Pulse Rate [Apical] 72 Pulse Rate from SpO2 Sensor 67 66 Respiratory Rate 19 19 18 Respiratory Effort / Characteristics Non-Labored Respiratory Depth Normal Respiratory Pattern Blood Pressure 104/68 Blood Pressure [Right Arm] 104/68 Blood Pressure Mean 79 Blood Pressure Mean [Right Arm] 80 Pulse Oximetry 96 97 97 Oxygen Delivery Method Room Air Sepsis Recent Fever Within 48 Hours Sepsis Action Taken by Nursing Pulse Oximetry Post Tiitration 03/22/19 04:30 03/22/19 04:31 03/22/19 04:40 Temperature Temperature Source Pulse Rate 67 72 70 Pulse Rate [Apical] Pulse Rate from SpO2 Sensor 69 74 71 Respiratory Rate 14 17 16 Respiratory Effort / Characteristics Respiratory Depth Respiratory Pattern Blood Pressure 118/67 Blood Pressure [Right Arm] Blood Pressure Mean 75 Blood Pressure Mean [Right Arm] Pulse Oximetry 97 95 96 Oxygen Delivery Method Sepsis Recent Fever Within 48 Hours Sepsis Action Taken by Nursing Pulse Oximetry Post Tiitration 03/22/19 04:50 Temperature Temperature Source Pulse Rate 77 Pulse Rate [Apical] Pulse Rate from SpO2 Sensor 77 Respiratory Rate 17 Respiratory Effort / Characteristics Respiratory Depth Respiratory Pattern Blood Pressure Blood Pressure [Right Arm] Blood Pressure Mean Blood Pressure Mean [Right Arm] Pulse Oximetry 96 Oxygen Delivery Method Sepsis Recent Fever Within 48 Hours Sepsis Action Taken by Nursing Pulse Oximetry Post Tiitration Laboratory Data Result diagrams: 03/22/19 02:30 03/22/19 02:30 Lab Results 03/22/19 03/22/19 Range/Units 02:30 02:30 WBC 6.73 (4.8-10.8) K/uL RBC 4.29 (4.2-5.4) M/uL Hgb 12.8 (12.0-16.0) g/dL Hct 38.0 (37-47) % MCV 88.6 (80-100) fL MCH 29.8 (25-34) pg MCHC 33.7 (32-36) g/dL RDW Std Deviation 45.3 (36.4-46.3) fL RDW Coeff of Lesly 14.0 (11.5-14.5) % Plt Count 198 (130-400) K/uL MPV 10.7 H (7.4-10.4) fL Immature Gran % (Auto) 0.1 % Neut % (Auto) 55.4 % Lymph % (Auto) 33.7 % [place] % (Auto) 8.8 % Eos % (Auto) 1.6 % Baso % (Auto) 0.4 % Immature Gran # (Auto) 0.01 (0.00-0.02) K/uL Neut # (Auto) 3.72 (1.4-6.5) K/uL Lymph # (Auto) 2.27 (1.2-3.4) K/uL [place] # (Auto) 0.59 (0.11-0.59) K/uL Eos # (Auto) 0.11 (0-0.5) K/uL Baso # (Auto) 0.03 (0-0.2) K/uL Sodium 141 (136-145) mmol/L Potassium 3.8 (3.5-5.1) mmol/L Chloride 109 H (98-107) mmol/L Carbon Dioxide 28 (21-32) mmol/L Anion Gap 4.0 (3-11) BUN 18 (7-18) mg/dl Creatinine 0.66 (0.6-1.2) mg/dl Est Cr Clr Drug Dosing 76.5 ml/min Est GFR ( Amer) 108.2 Est GFR (Non-Af Amer) 93.4 BUN/Creatinine Ratio 27.3 H (10-20) Glucose 100 H (70-99) mg/dl Calcium 9.2 (8.5-10.1) mg/dl Magnesium 2.1 (1.8-2.4) mg/dl Troponin I < 0.015 (0-0.045) ng/ml Administered Medications Heparin Sodium/Dextrose (Heparin Sodium/Dextrose) 25,000 units in 500 mls @ 20 mls/hr IV .Q24H [facility]; Protocol Stop: 04/21/19 04:14 Last Admin: 03/22/19 04:24 Dose: 1,000 units/hr, 20 mls/hr Documented by: [id number] Cosigned by: [id number] Potassium Chloride/Sodium Chloride (Normal Saline W/20 Meq Kcl) 20 meq in 1,000 mls @ 100 mls/hr IV .Q10H [facility] Stop: 04/21/19 04:14 Last Admin: 03/22/19 04:24 Dose: 100 mls/hr Documented by: [id number] Discontinued Medications Aspirin (Aspirin) 162 mg PO NOW STA Stop: 03/22/19 02:29 Last Admin: 03/22/19 02:37 Dose: 162 mg Documented by: [id number] Heparin Sodium (Porcine) (Heparin Iv Bolus) Confirm Administered Dose 10,000 units .ROUTE .STK-MED ONE Stop: 03/22/19 04:20 Last Admin: 03/22/19 04:23 Dose: 4,000 units Documented by: [id number] Cosigned by: [id number] Heparin Sodium/Dextrose () 1 ea IV NOW STA; Protocol Stop: 03/22/19 04:15 Last Admin: 03/22/19 04:25 Dose: 1 ea Documented by: [id number] Nitroglycerin (Nitrostat) 0.4 mg SL NOW STA Stop: 03/22/19 02:29 Last Admin: 03/22/19 02:40 Dose: 0.4 mg Documented by: [id number] Nitroglycerin (Nitro-Bid 2%) 1 inch EXT NOW ONE Stop: 03/22/19 02:29 Last Admin: 03/22/19 02:37 Dose: 1 inch Documented by: [id number] Discharge Plan Visit Data *Final* Discharge Date/Time: 03/22/19 05:15 Chief Complaint: Cardiac Assessment Stated Complaint: CHEST PAIN,NECK PAIN ED Provider: Gary Henning Discharge Problem: Unstable angina Patient Disposition: Admitted As Inpatient Discharge Instructions Interventions: ED Discharge Assessment Last Done: 03/22/19 05:15 The scribe's documentation has been prepared under my direction and personally reviewed by me in its entirety. I confirm that the note above accurately reflec ts all work, treatment, procedures, and medical decision making performed by me.
[2019-03-22] MEDS: ATORVASTATIN 20 MG TAB PO SCH (08:22)
[2019-03-22] MEDS: CHOLECALCIFEROL 1,000 UNITS 25 MCG TAB PO SCH (08:22)
[2019-03-22] MEDS: lisinopriL 5 MG TAB PO SCH (08:22)
[2019-03-22] MEDS: ASPIRIN 81 MG ECTAB PO SCH (08:22)
[2019-03-22] MEDS: METOPROLOL TARTRATE 25 MG TAB PO SCH ×2 (08:23→20:23)
[2019-03-22 11:07] LABS: Partial Thromboplastin Ratio 0.9; Partial Thromboplastin Time 24.3 Seconds (21.0-31.0)
[2019-03-22 13:17] LABS: Partial Thromboplastin Ratio 3.4
[2019-03-22] MEDS: TICAGRELOR 90 MG TAB PO SCH ×2 (13:38→20:23)
[2019-03-22 14:02] LABS: Partial Thromboplastin Time 92.1 Seconds (21.0-31.0)
--- NOTE | 2019-03-22 16:03 | Cardiology Consultation ---
Date of Consultation March 22, 2019 Assessment & Plan (1) Chest pain syndrome: The patient was awaken from sleep with substernal chest discomfort. According to her report, her symptoms resolved with the administration of intravenous heparin. It may be reasonable to proceed with a cardiac catheterization. (2) Coronary artery disease: The patient had an RCA ROSCOE placed back in March 2018 at the time of an acute inferior MT. (3) Hypertension: Adequate control on her current medical regimen. (4) Hyperlipidemia LDL goal <70: Continue atorvastatin. History of Present Illness Attending Physician: Conner Lozano MD History of Present Illness Mrs. Vergara is a 63-year-old female admitted earlier today with a chest pain syndrome. This consultation was ordered to assist in her management. Of note, the patient typically follows with Dr. Arteaga in the outpatient setting. The patient was in her usual state of health until 1 o'clock this morning when she was awakened from a sound sleep with substernal chest pressure. There are no other associated symptoms such as shortness of breath, nausea, vomiting, or radiation of the discomfort. The patient got out of bed and administered 2 sublingual nitroglycerines and took an aspirin. She also tried some antacids without success. Her symptoms continued for several hours and therefore, she presented to the emergency room for further care. Fortunately, on arrival here, the patient's initial troponin was undetectable and her EKG showed no acute changes. She was started on heparin drip and hospitalization was recommended. She feels that her discomfort resolved with the administration of intravenous heparin. The patient's cardiac history began back in March 2018 when she presented to this institution with an acute inferior wall myocardial infarction. She had an ROSCOE placed in the RCA by Dr. Arteaga. The patient did well until early January when she complained of chest discomfort to her primary care physician. She underwent a stress echocardiogram in [facility]. She exercised for 6 minutes and 31 seconds attaining 8 METS and a peak heart of 97 percent predicted maximum. Her echo cardiographic response was normal, however, there was some borderline ST segment changes noted. She did experience chest discomfort while on the treadmill. She was offered a cardiac catheterization, however, refused. Currently, patient is resting comfortably in bed without complaints. Her is at the bedside. We have discussed the need to proceed with a cardiac catheterization. Past medical and surgical history 1. Coronary artery disease 2. RCA ROSCOE-March 2018 3. Hypertension 4. Hypercholesterolemia 5. GERD 6. Hiatal hernia 7. 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 Allergies Allergy/AdvReac Type Severity Reaction Status Date / Time No Known Drug Allergies Allergy Verified 03/10/19 14:58 Home Medications Home Medications Medication Instructions Recorded Confirmed Type cholecalciferol (vitamin D3) 2,000 unit PO DAILY 04/02/18 03/10/19 History [Vitamin D3] ranitidine HCl 150 mg PO DAILY PRN 04/02/18 03/10/19 History acetaminophen [Mapap 650 mg PO Q4H PRN #30 tab 04/04/18 03/10/19 Rx (acetaminophen)] aspirin [Ecotrin Low Strength] 81 mg PO QAM #30 tab 04/04/18 03/10/19 Rx cyclobenzaprine 10 mg PO TID PRN #15 tab 04/04/18 03/10/19 Rx lisinopril [Zestril] 5 mg PO QAM #30 tab 04/04/18 03/10/19 Rx metoprolol tartrate 25 mg PO BID #60 tab 04/04/18 03/10/19 Rx atorvastatin 20 mg tablet 20 mg PO DAILY 01/15/19 03/10/19 History nitroglycerin 0.4 mg sublingual 0.4 mg SUBLINGUAL Q5M PRN #15 tabs 01/15/19 03/10/19 Rx tablet ticagrelor 60 mg tablet 60 mg PO BID #60 tab 03/10/19 03/10/19 Rx Patient History Medical History (Updated 03/22/19 @ 16:11 by Armando Carias MD) Degenerative disc disease GERD (gastroesophageal reflux disease) Hyperlipidemia LDL goal <70 Old inferior wall myocardial infarction Osteopenia Surgical History (Updated 03/22/19 @ 05:01 by Victorino Blas MD) History of section S/P right coronary artery (RCA) stent placement Family History Brother CAD (coronary artery disease), [place] coronary artery, Onset Age: 58 With CABG at age 58 Father CAD (coronary artery disease), [place] coronary artery, Onset Age: 79 With history of CABG, smoker Mother , Old age HTN (hypertension), benign Social History Preferred Language: Armenian Communication Ability: Effective Psychology Associate Required: No Beliefs That Will Affect Care: None marital status: Current Living Situation: Spouse current occupational status: employed 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 HEENT exam is negative. Neck is supple with full carotid upstrokes. There are no carotid bruits. Jugular venous pressure is flat at 90. There is no thyromegaly. Cardiovascular exam reveals a regular rhythm with a normal S1 and S2. No S3, S4, or murmurs are noted. Lungs are clear without rales, rhonchi, or wheezes. Abdomen is soft and nontender without bruits. Extremities reveal intact radial artery and posterior tibial pulses bilaterally. There is no peripheral edema. Results & Data Vital Signs (Past 12 Hours) Vital Signs Temp Pulse Pulse Pulse Resp BP BP 03/22/19 15:46 36.7 C 66 18 112/71 03/22/19 10:55 36.5 C 67 16 103/65 03/22/19 07:48 36.6 C 64 12 106/60 03/22/19 05:33 36.5 C 68 18 122/75 03/22/19 05:10 64 16 03/22/19 05:01 65 15 03/22/19 05:00 64 15 99/63 L 03/22/19 04:50 77 17 03/22/19 04:40 70 16 03/22/19 04:31 72 17 03/22/19 04:30 67 14 118/67 03/22/19 04:28 72 18 104/68 03/22/19 04:23 66 19 104/68 03/22/19 04:20 67 19 03/22/19 04:10 66 15 03/22/19 04:00 67 18 Pulse Ox 03/22/19 15:46 03/22/19 10:55 98 03/22/19 07:48 97 03/22/19 05:33 98 03/22/19 05:10 94 03/22/19 05:01 95 03/22/19 05:00 94 03/22/19 04:50 96 03/22/19 04:40 96 03/22/19 04:31 95 03/22/19 04:30 97 03/22/19 04:28 97 03/22/19 04:23 97 03/22/19 04:20 96 03/22/19 04:10 96 03/22/19 04:00 96 Laboratory Results Laboratory Results - last 24 hr 03/22/19 03/22/19 03/22/19 02:30 02:30 04:21 WBC 6.73 RBC 4.29 Hgb 12.8 Hct 38.0 MCV 88.6 MCH 29.8 MCHC 33.7 RDW Std Deviation 45.3 RDW Coeff of Lesly 14.0 Plt Count 198 MPV 10.7 H Immature Gran % (Auto) 0.1 Neut % (Auto) 55.4 Lymph % (Auto) 33.7 Haines % (Auto) 8.8 Eos % (Auto) 1.6 Baso % (Auto) 0.4 Immature Gran # (Auto) 0.01 Neut # (Auto) 3.72 Lymph # (Auto) 2.27 Haines # (Auto) 0.59 Eos # (Auto) 0.11 Baso # (Auto) 0.03 APTT 24.3 PTT Ratio 0.9 Sodium 141 Potassium 3.8 Chloride 109 H Carbon Dioxide 28 Anion Gap 4.0 BUN 18 Creatinine 0.66 Est Cr Clr Drug Dosing 76.5 Est GFR ( Amer) 108.2 Est GFR (Non-Af Amer) 93.4 BUN/Creatinine Ratio 27.3 H Glucose 100 H Calcium 9.2 Magnesium 2.1 Troponin I < 0.015 03/22/19 03/22/19 03/22/19 06:18 12:44 12:44 WBC RBC Hgb Hct MCV MCH MCHC RDW Std Deviation RDW Coeff of Lesly Plt Count MPV Immature Gran % (Auto) Neut % (Auto) Lymph % (Auto) Haines % (Auto) Eos % (Auto) Baso % (Auto) Immature Gran # (Auto) Neut # (Auto) Lymph # (Auto) Haines # (Auto) Eos # (Auto) Baso # (Auto) APTT 92.1 H* PTT Ratio 3.4 Sodium Potassium Chloride Carbon Dioxide Anion Gap BUN Creatinine Est Cr Clr Drug Dosing Est GFR ( Amer) Est GFR (Non-Af Amer) BUN/Creatinine Ratio Glucose Calcium Magnesium Troponin I < 0.015 < 0.015 Diagnostic Findings EKG notes normal sinus rhythm with a left atrial abnormality, low voltage, and poor R-wave progression across the anterior precordium. Chest x-ray shows no acute disease. Hiatal hernia is identified. PG Care Time/CCT Total # of Minutes Spent Total Time Spent with Patient: Total time spent is greater than 50% in coordination of care (as documented) at patient's floor/unit and/or counseling patient:
[2019-03-22 21:42] LABS: Partial Thromboplastin Ratio 2.2
[2019-03-22 21:47] LABS: Partial Thromboplastin Time 58.5 Seconds (21.0-31.0)
--- NOTE | 2019-03-22 22:39 | Hospitalist Progress Note ---
Date of Service March 22, 2019 Assessment & Plan (1) Unstable angina: Serial troponins negative. Atypical chest pain however similar to her previous cardiac chest pains Continue aspirin, Brilinta, metoprolol and lisinopril. Continue heparin drip up until cardiac cath. Stop IV fluids, regular heart healthy diet for now. N.p.o. after midnight Discussed with Dr. Carias. Plan for cardiac catheterization tomorrow. (2) Coronary artery disease: CAD/inferior wall [place] on 04/02/2018 /RCA stent placement on 04/02/2018/hypertension- Continue aspirin, Brilinta, lisinopril, metoprolol. (3) S/P right coronary artery (RCA) stent placement: Underwent cardiac catheterization for STEMI on 04/02/2018 with RCA PCI stent placement (4) Old inferior wall myocardial infarction: Noted on 04/02/2018 (5) GERD (gastroesophageal reflux disease): With known moderate hiatal hernia. By report she has a good hold on the difference between her cardiac chest pains which resolved with prior stenting and reflux for which she takes ranitidine as needed. Continue ranitidine as needed (6) Hyperlipidemia LDL goal <70: Continue atorvastatin 20 mg p.o. daily. Repeat fasting cholesterol in a.m. (7) DVT prophylaxis: Continues on heparin drip (8) Discharge planning issues: Cardiac rehabilitation on discharge Subjective Revisited history with the patient. She reports chest pain waking her up from sleeping without associated nausea, diaphoresis, shortness of breath. Lasted from approximately 1 AM to 5 AM but progressively getting better during this time. Mostly helps with heparin IV drip. Nitro paste discontinued due to hypotension and headache. No further chest pain since 5 AM. Comfortable sitting in bed when seen without shortness of breath. She feels her symptoms very similar to her atypical symptoms prior to her STEMI last year. At that time was having nonspecific left trapezius, neck and headache pains and becoming more short of breath. She was treated for muscle spasms for a while until revascularization of the STEMI relieved with the symptoms. She had recurrence of the symptoms in December and she had a positive stress EKG with ST depression but negative stress echo. It was recommended at that point she undergo cardiac catheterization but she canceled the procedure because her symptoms resolved. Review of Systems Review of Systems: All systems reviewed & are unremarkable except as noted in HPI & below Physical Exam Constitutional: WD/WN, vitals as above Eyes: + anicteric sclerae; normal pupil size ENMT: external ear and nose normal, oropharynx normal Neck: trachea midline Respiratory: normal respiratory effort, lungs clear to auscultation Cardiovascular: Rate/Rhythm: regular rate and regular rhythm Heart Sounds: no murmur Vessels: no JVD Extremities: normal capillary refill; no calf tenderness and no pedal edema Gastrointestinal (Abdomen): Inspection/Auscultation: normal bowel sounds; abdomen not distended Percussion/Palpation: abdomen soft; abdomen nontender, no guarding and abdomen not rigid Musculoskeletal: no cyanosis or clubbing, extremities motor strength 5/5 Skin: no rashes, warm and dry Neurologic: moves all extremities and awake; not confused Speech / Cognition: normal speech Psychiatric: A+Ox3, euthymic affect Results & Data Vital Signs (Past 12 Hours) Vital Signs Temp Pulse Pulse Resp BP Pulse Ox 03/22/19 19:55 36.4 C L 67 18 110/71 100 03/22/19 16:00 71 03/22/19 15:46 36.7 C 66 18 112/71 03/22/19 10:55 36.5 C 67 16 103/65 98 PG Care Time/CCT Total # of Minutes Spent Total Time Spent with Patient: Total time spent is greater than 50% in coordination of care (as documented) at patient's floor/unit and/or counseling patient: (1) Coronary artery disease Coronary Disease-Associated Artery/Lesion type: [place] artery [place] vs. transplanted heart: [place] heart Associated angina: with unstable angina Qualified Code(s): I25.110 - Atherosclerotic heart disease of [place] coronary artery with unstable angina pectoris (2) GERD (gastroesophageal reflux disease) Esophagitis presence: esophagitis presence not specified Qualified Code(s): K21.9 - Gastro-esophageal reflux disease without esophagitis
[2019-03-23 05:34] LABS: Basophils # (auto) 0.03 K/uL (0-0.2); Basophils % (auto) 0.6 %; Eosinophils # (auto) 0.09 K/uL (0-0.5); Eosinophils % (auto) 1.7 %; Hematocrit (blood only) 37.8 % (37-47); Hemoglobin 12.4 g/dL (12.0-16.0); Immature Granulocytes # (auto) 0.01 K/uL (0.00-0.02); Immature Granulocytes % (auto) 0.2 %; Lymphocytes # (auto) 1.84 K/uL (1.2-3.4); Lymphocytes % (auto) 34.4 %; Mean Corpuscular Hemoglobin 29.7 pg (25-34); Mean Corpuscular Hgb Conc 32.8 g/dL (32-36); Mean Corpuscular Volume 90.4 fL (80-100); Mean Platelet Volume 10.2 fL (7.4-10.4); Monocytes # (auto) 0.33 K/uL (0.11-0.59); Monocytes % (auto) 6.2 %; Neutrophils # (auto) 3.05 K/uL (1.4-6.5); Neutrophils % (auto) 56.9 %; Platelet Count 187 K/uL (130-400); RDW Standard Deviation 46.2 fL (36.4-46.3); Red Blood Count 4.18 M/uL (4.2-5.4); White Blood Count 5.35 K/uL (4.8-10.8)
[2019-03-23 05:53] LABS: INR 1.1 (0.9-1.1); Partial Thromboplastin Ratio 2.4; Prothrombin Time 10.9 Seconds (9.0-12.0)
[2019-03-23 06:08] LABS: Albumin Level 3.1 gm/dl (3.4-5.0); BUN Creatinine Ratio 21.6 (10-20); Calcium 9.1 mg/dl (8.5-10.1); Creatinine Clr Calc Pharmacy 79.1 ml/min; Est GFR (African American) 108.7; Est GFR (Non-African American) 93.8; Partial Thromboplastin Time 63.7 Seconds (21.0-31.0); Potassium 3.8 mmol/L (3.5-5.1)
[2019-03-23 06:10] LABS: Albumin Globulin Ratio 0.8 (0.9-2); Bilirubin,Total 0.5 mg/dl (0.2-1); Globulin 3.8 gm/dl (2.5-4.0); Total Protein 6.9 gm/dl (6.4-8.2)
[2019-03-23] MEDS: HEPARIN SODIUM/DEXTROSE 25,000 UNITS/500 ML BAG IV SCH (06:12)
[2019-03-23 06:13] LABS: Chol HDL Ratio 2; Cholesterol 131 mg/dl (0-200); HDL Cholesterol 74 mg/dl; LDL Cholesterol Calculated 46 mg/dl; Triglycerides 55 mg/dl (0-150); Troponin I < 0.015 ng/ml (0-0.045); VLDL Cholesterol 11 mg/dl
[2019-03-23 07:00] LABS: Estimated Average Glucose 108 mg/dl; Hemoglobin A1C 5.4 % (4.5-5.6)
[2019-03-23] MEDS: METOPROLOL TARTRATE 25 MG TAB PO SCH ×2 (08:29→19:54)
[2019-03-23] MEDS: lisinopriL 5 MG TAB PO SCH (08:29)
[2019-03-23] MEDS: ASPIRIN 81 MG ECTAB PO SCH (08:30)
[2019-03-23] MEDS: TICAGRELOR 90 MG TAB PO SCH ×2 (08:30→19:55)
[2019-03-23] MEDS: ATORVASTATIN 20 MG TAB PO SCH (08:30)
[2019-03-23] MEDS: CHOLECALCIFEROL 1,000 UNITS 25 MCG TAB PO SCH (08:30)
[2019-03-23] MEDS ORDERED: NiCARDipine HCL INJ 2.5 MG/ML 10 ML AMP ONE (16:05)
[2019-03-23] MEDS ORDERED: HEPARIN (PORCINE) 1000 UNIT/ML 10 ML (CATH LAB USE ONLY) ONE (16:05)
[2019-03-23] MEDS ORDERED: NITROGLYCERIN/D5W 100MCG/ML 20ML SYR ONE (16:06)
[2019-03-23] MEDS ORDERED: MIDAZOLAM HCL 1 MG/ML 2ML VIAL ONE (16:06)
[2019-03-23] MEDS ORDERED: fentaNYL citrate 100 MCG/2 ML VIAL ONE (16:06)
--- NOTE | 2019-03-23 16:22 | Pre Anesthesia Assessment ---
Date of Service March 23, 2019 Pre Sedation Assessment Vital Signs Temp Pulse Pulse Resp BP BP Pulse Ox 03/23/19 15:00 56 L 03/23/19 12:00 98.2 F 67 18 112/72 99 03/23/19 08:00 97.7 F 67 20 103/60 95 03/23/19 07:27 59 L 03/23/19 03:34 98.2 F 76 18 100/63 96 03/23/19 00:06 97.9 F 75 18 103/62 95 03/22/19 19:55 97.5 F L 67 18 110/71 100 Cardiovascular RRR, no murmur, no edema Respiratory normal respiratory effort, lungs clear to auscultation Pre-Sedation Airway Assessment Smoking Status: Never smoker Hx Sleep Apnea: No Hx Difficult Intubation: No Short, Thick Neck: No Thyromental Distance: > or= 3.5 Finger Breadths Oral Cavity: + WNL Mallampati Class: II ASA: ASA2 NPO Status Date of Last Intake of Fluids: 03/22/19 Time of Last Intake of Fluids: 19:00 Date of Last Intake of Solid Food: 03/22/19 Time of Last Intake of Solid Foods: 19:00 Procedure Planning Contraindications for Sedation: none Current Medications Reviewed: Yes Notes The planned sedation has been discussed with the patient. Informed Consent was obtained. I have identified the patient, determined the appropriateness of sedation and have assessed the patient immediately prior to the procedure. All medicine(s) and interventions are by my order.
--- NOTE | 2019-03-23 16:57 | Post Anesthesia Assessment ---
Date of Service March 23, 2019 Post Sedation Assessment Vital Signs Temp Pulse Pulse Resp BP BP Pulse Ox 03/23/19 15:00 56 L 03/23/19 12:00 98.2 F 67 18 112/72 99 03/23/19 08:00 97.7 F 67 20 103/60 95 03/23/19 07:27 59 L 03/23/19 03:34 98.2 F 76 18 100/63 96 03/23/19 00:06 97.9 F 75 18 103/62 95 03/22/19 19:55 97.5 F L 67 18 110/71 100 Recovery Score Activity: Moves 4 extremities Respiration: Deep Breath/Cough Circulation: +/-20% PreAnes Value Consciousness: Fully Awake Oxygen Saturation: O2 needed for >90% Discharge Sedation Level of Care: Fast Track Phase II Post Sedation Plan On clinical assessment, the patient appears to have tolerated the sedation without complications. Patient is recovering as anticipated. Patient will continue to be monitored by nursing and may be discharged when sedation discharge criteria are met per below protocol. Upon Completions of procedure up to 15 minutes continue every 5 minute vital signs and the P.A.R. score; then discharge to a Phase I or Fast Track to Phase II per the following guidelines: * Discharge Patient to appropriate Phase II area if PAR is 8 or greater or return to pre- procedure baseline. The post - procedure orders will be as directed. * If PAR score is less than 8 or not return to pre-procedure baseline then patient will follow Phase I monitoring till PAR is reached for Phase II. The Phase I may be done in procedure room or may call to secure a Phase I area. * If naloxone or flumazenil are used for reversal, hold in Phase I for continued monitoring from when last reversal dose was given for a minimum of 60 minutes or longer pending the nurse and/or physician discretion of patient condition before discharge to Phase II. Please call the Sedation Physician to re-evaluate and complete post-note for discharge to Phase II area. Do NOT discharge from procedure sedation or Phase 1 until post- sedation evaluation note is complete by procedure /sedation MD Sedation Discharge Instructions to be given to the patient at discharge to home.
--- NOTE | 2019-03-23 17:13 | Cardiac Catheterization ---
[facility] Data: Housekeeping Coordinator Cardiac Status Clinical evaluation leading to the procedure CAD Presenation: Unstable angina Anginal Classification: CCS IV Heart Failure: No Cardiogenic Shock within 24 Hours: No Cardiac Arrest within 24 Hours: No Imaging Studies Past 6 Months: Yes Stress Studies Past 6 Months: Yes Stress Echocardiogram: Yes - Indeterminant Diagnostic Physicians Name: Ata Arteaga MD Status: Elective Closure Device Percutaneous Entry Location: Radial Closure Device: Radial Band Recommendations: Medical Therapy and/or Counseling Intraprocedure Events Significant Disection: No Perforation: No Cardiac Cath Procedure Full Procedure Date March 23, 2019 Pre-Procedure Diagnosis Pre-Procedure Diagnosis: Angina AUC Score AUC Score: 9 Post-Procedure Diagnosis Post-Procedure Diagnosis: Moderate CAD and Normal Intracardiac Pressures Procedure(s) Performed Procedure(s) Performed: Coronary Angiography and Left Heart Cath High Heel Builder Ata Arteaga MD Program Production Specialist(s) Abhishek Estimated Blood Loss Estimated Blood Loss: 10 Medication(s) Medication(s): Clopidogrel, Fentanyl, Heparin, Lidocaine 1%, Nicardipine, Nitroglycerin and Versed Summary of Findings Indication: Possible unstable angina Access: 6 Fr slender right radial artery Catheters: [place] Findings: LM -angulated proximal segment with 20% stenosis, 20% distal disease prior to bifurcation. LAD -moderate caliber vessel with diffuse 40% disease, 50-60% stenosis in the mid segment after takeoff of small second diagonal. Sluggish flow in distal vessel. Circumflex -moderate caliber vessel, mid segment luminal irregularities. Medium caliber OM 2 without significant disease RCA -dominant vessel, mid LAD stent widely patent, 20% distal disease, luminal irregularities in PDA, PLBs. LVEDP -12 Arterial Closure: TR band Summary: 1. Moderate nonobstructive coronary artery disease -40% diffuse proximal LAD, 50 to 60% mid LAD after takeoff of second diagonal (unchanged from 2018). Widely patent mid RCA stent 2. Normal intracardiac filling pressure Recommendations: Continued ASCVD risk factor modification Sluggish flow in distal LAD potentially suggestive of microvascular dysfunction versus spasm. Consider coronary vasodilators if recurrent symptoms in the future. Hemodynamics Rest Ao:: Final Ao: LV: 98/12 Recommendations Recommendations: Medical Therapy and/or Counseling Specimens Specimens: None Radiation Exposure (mGy) 567 Contrast (mls) 25 Fluids (cc crystalloids) Fluids (cc crystalloids): 50 Drains Drains: None Anesthesia Moderate Procedural Complication(s) None Disposition PCU I attest to the content of the Intraoperative Record and any orders documented therein. Any exceptions are noted below. [facility] Card Cath Procedure Codes Cardiac Catheterization Procedure 1: Cardiovascular Cath Procedures: 84460 Coronaries and LHC (+/-LV) Moderate Sedation Procedure 1: Sedation/Anesthesia: 01997 Mod Sedation by the same physician;Init15 Min Child Age 5 & Up PG Care Time/CCT Total # of Minutes Spent Total Time Spent with Patient: Total time spent is greater than 50% in coordination of care (as documented) at patient's floor/unit and/or counseling patient:
--- NOTE | 2019-03-23 19:33 | Hospitalist Progress Note ---
Date of Service March 23, 2019 Assessment & Plan (1) Unstable angina: Serial troponins negative. Atypical chest pain however similar to her previous cardiac chest pains Continue aspirin, Brilinta, metoprolol and lisinopril. Continue heparin drip up until cardiac cath. Cardiac catheterization planned for today -We will await results to determine future plan (2) Coronary artery disease: CAD/inferior wall [place] on 04/02/2018 /RCA stent placement on 04/02/2018/hypertension- Continue aspirin, Brilinta, lisinopril, metoprolol. (3) S/P right coronary artery (RCA) stent placement: Underwent cardiac catheterization for STEMI on 04/02/2018 with RCA PCI stent placement (4) Old inferior wall myocardial infarction: Noted on 04/02/2018 (5) GERD (gastroesophageal reflux disease): With known moderate hiatal hernia. By report she has a good hold on the difference between her cardiac chest pains which resolved with prior stenting and reflux for which she takes ranitidine as needed. Continue ranitidine as needed for GERD (6) Hyperlipidemia LDL goal <70: Continue atorvastatin 20 mg p.o. daily. Lipid panel here is excellent, LDL only 46, HDL 74, total cholesterol 131 (7) DVT prophylaxis: Continues on heparin drip (8) Discharge planning issues: Disposition-awaiting cardiac catheterization Subjective Patient feels well, no chest pain recurrence. No left shoulder or neck pain. Awaiting cardiac catheterization today. Denies shortness of breath, no abdominal pain or nausea. Telemetry with normal sinus rhythm with rates in 60s to 80s Later in the day, I discussed her case with bindery assistant. Review of Systems Review of Systems: All systems reviewed & are unremarkable except as noted in HPI & below Physical Exam Constitutional: WD/WN, vitals as above Eyes: PERRL, conjunctivae normal, anicteric sclerae ENMT: external ear and nose normal, oropharynx normal Neck: trachea midline, no thyromegaly Respiratory: normal respiratory effort, lungs clear to auscultation Cardiovascular: RRR, no murmur, no edema Chest (Breasts): Chest: normal inspection of chest Gastrointestinal (Abdomen): normal bowel sounds, soft, nontender, no hepatosplenomegaly Musculoskeletal: Head/Neck/Chest: neck supple; no chest tenderness Extremities: extremities normal to inspection; no cyanosis and no clubbing Skin: no rashes, warm and dry Neurologic: moves all extremities and awake; no focal motor deficits Psychiatric: A+Ox3, euthymic affect Lymphatic: no lymphedema Results & Data Vital Signs (Past 12 Hours) Vital Signs Temp Pulse Pulse Resp BP BP Pulse Ox 03/23/19 18:46 80 18 105/65 03/23/19 18:31 76 18 110/70 03/23/19 18:15 69 18 124/80 98 03/23/19 18:00 63 18 127/78 97 03/23/19 17:45 65 18 126/76 97 03/23/19 17:30 63 18 129/79 98 03/23/19 17:15 36.4 C L 61 18 110/69 97 03/23/19 15:00 56 L 03/23/19 12:00 36.8 C 67 18 112/72 99 03/23/19 08:00 36.5 C 67 20 103/60 95 Laboratory Results Labs reviewed PG Care Time/CCT Total # of Minutes Spent Total Time Spent with Patient: Total time spent is greater than 50% in c oordination of care (as documented) at patient's floor/unit and/or counseling patient: (1) Coronary artery disease Associated angina: with unstable angina Coronary Disease-Associated Artery/Lesion type: [place] artery [place] vs. transplanted heart: [place] heart Qualified Code(s): I25.110 - Atherosclerotic heart disease of [place] coronary artery with unstable angina pectoris (2) GERD (gastroesophageal reflux disease) Esophagitis presence: esophagitis presence not specified Qualified Code(s): K21.9 - Gastro-esophageal reflux disease without esophagitis
--- NOTE | 2019-03-23 22:31 | Cardiology Progress Note ---
Date of Service March 23, 2019 Assessment & Plan (1) Chest pain syndrome: 2. h/o inferior stemi and RCA PPCI with ROSCOE 3. HTN, 4. Dyslipidemia 5. Recent indeterminate stress test Recurrent chest pain reminiscent of prior SD Negative troponin, ECG and echo unchanged Plan for cardiac cath via right radial artery later today. Further recommendations pending findings. Subjective Has remained chest pain free. No other new symptoms this morning. Review of Systems Review of Systems: All systems reviewed & are unremarkable except as noted in HPI & below Physical Exam Physical Exam: General: Comfortable, no acute distress Eyes: Sclerae anicteric, extraocular movements intact HENT: Oropharynx clear mucous membranes moist Lungs: Clear to auscultation bilaterally, no rhonchi or wheezes Cardiac: Regular rate and rhythm, no murmurs, rubs or gallops. Abdomen: Soft, nontender, nondistended, positive bowel sounds. Neuro: Nonfocal Psych: Alert orient x3, normal affect and mood Extremities/Vascular: -- 2+ radial bilaterally -- No edema Results & Data Vital Signs (Past 12 Hours) Vital Signs Temp Pulse Pulse Resp BP BP Pulse Ox 03/23/19 19:56 97.7 F 85 18 93/61 L 95 03/23/19 18:46 80 18 105/65 03/23/19 18:31 76 18 110/70 03/23/19 18:15 69 18 124/80 98 03/23/19 18:00 63 18 127/78 97 03/23/19 17:45 65 18 126/76 97 03/23/19 17:30 63 18 129/79 98 03/23/19 17:15 97.5 F L 61 18 110/69 97 03/23/19 15:00 56 L 03/23/19 12:00 98.2 F 67 18 112/72 99 PG Care Time/CCT Total # of Minutes Spent Total Time Spent with Patient: Total time spent is greater than 50% in coordination of care (as documented) at patient's floor/unit and/or counseling patient:
[2019-03-24 05:53] LABS: Basophils # (auto) 0.03 K/uL (0-0.2); Basophils % (auto) 0.5 %; Eosinophils # (auto) 0.09 K/uL (0-0.5); Eosinophils % (auto) 1.6 %; Hematocrit (blood only) 39.6 % (37-47); Hemoglobin 12.9 g/dL (12.0-16.0); Immature Granulocytes # (auto) 0.01 K/uL (0.00-0.02); Immature Granulocytes % (auto) 0.2 %; Lymphocytes # (auto) 1.76 K/uL (1.2-3.4); Lymphocytes % (auto) 30.7 %; Mean Corpuscular Hemoglobin 29.6 pg (25-34); Mean Corpuscular Hgb Conc 32.6 g/dL (32-36); Mean Corpuscular Volume 90.8 fL (80-100); Mean Platelet Volume 10.5 fL (7.4-10.4); Monocytes # (auto) 0.51 K/uL (0.11-0.59); Monocytes % (auto) 8.9 %; Neutrophils # (auto) 3.33 K/uL (1.4-6.5); Neutrophils % (auto) 58.1 %; Platelet Count 192 K/uL (130-400); RDW Coefficient of Variation 13.9 % (11.5-14.5); RDW Standard Deviation 45.9 fL (36.4-46.3); Red Blood Count 4.36 M/uL (4.2-5.4); White Blood Count 5.73 K/uL (4.8-10.8)
[2019-03-24 06:25] LABS: Albumin Level 3.1 gm/dl (3.4-5.0); BUN Creatinine Ratio 25.4 (10-20); Bilirubin,Total 0.5 mg/dl (0.2-1); Calcium 9.4 mg/dl (8.5-10.1); Creatinine Clr Calc Pharmacy 71.7 ml/min; Est GFR (African American) 104.3; Potassium 4.3 mmol/L (3.5-5.1)
[2019-03-24 06:26] LABS: Albumin Globulin Ratio 0.8 (0.9-2); Globulin 4.1 gm/dl (2.5-4.0); Total Protein 7.2 gm/dl (6.4-8.2)
[2019-03-24 07:59] VITALS: O2SAT 98
[2019-03-24] MEDS: ATORVASTATIN 20 MG TAB PO SCH (08:07)
[2019-03-24] MEDS: METOPROLOL TARTRATE 25 MG TAB PO SCH (08:07)
[2019-03-24] MEDS: TICAGRELOR 90 MG TAB PO SCH (08:08)
[2019-03-24] MEDS: CHOLECALCIFEROL 1,000 UNITS 25 MCG TAB PO SCH (08:08)
[2019-03-24] MEDS: lisinopriL 5 MG TAB PO SCH (08:08)
[2019-03-24] MEDS: ASPIRIN 81 MG ECTAB PO SCH (08:08)
--- NOTE | 2019-03-24 09:27 | Cardiology Progress Note ---
Date of Service March 24, 2019 Assessment & Plan (1) Chest pain syndrome: 2. h/o inferior stemi and RCA PPCI with ROSCOE 3. HTN, 4. Dyslipidemia 5. Recent indeterminate stress test Cardiac catheterization yesterday showed widely patent RCA stent and unchanged LAD disease from last year. Low suspicion that patient's presenting symptoms are cardiac in nature. Patient reassured. From a cardiac standpoint okay for discharge later today. No change to home cardiac meds. Almost 1 year out from initial stent, plan to transition to Brilinta 60 mg twice daily versus clopidogrel as an outpatient. Subjective Has remained chest pain free. No other new symptoms this morning. Telemetry reviewedno event Review of Systems Review of Systems: All systems reviewed & are unremarkable except as noted in HPI & below Physical Exam Physical Exam: General: Comfortable, no acute distress HEENT: Sclerae anicteric, mucous membranes moist Lungs: Clear to auscultation bilaterally, no rhonchi or wheezes Cardiac: Regular rate and rhythm, no murmurs. No JVD. Abdomen: Soft, nontender, nondistended, positive bowel sounds. Extremities: Warm, well perfused, no edema. Right radial artery access site with no ecchymosis, hematoma. Distal pulse and sensation intact. Skin: No rashes or lesions. Neuro: Nonfocal Psych: Alert orient x3, normal affect and mood Results & Data Vital Signs (Past 12 Hours) Vital Signs Temp Pulse Pulse Pulse Resp BP Pulse Ox 03/24/19 07:33 97.3 F L 75 17 113/70 98 03/24/19 04:22 97.7 F 85 16 109/71 96 03/23/19 23:28 97.5 F L 78 115/70 98 03/23/19 22:45 78 PG Care Time/CCT Total # of Minutes Spent Total Time Spent with Patient: Total time spent is greater than 50% in coordination of care (as documented) at patient's floor/unit and/or counseling patient:
[2019-03-24 11:39] VITALS: TEMP 97.5
[2019-03-24 11:54] VITALS: BP 112/72; PULSE 78
--- NOTE | 2019-03-24 11:55 | Discharge Summary ---
Date of Service March 24, 2019 Admission HPI Per Admitting Provider The patient is a 63-year-old female with a past medical history including CAD, status post inferior wall STEMI and RCA PCI on 04/02/2018 with moderate residual proximal to mid LAD disease. She presents to the emergency department with persistent chest discomfort that began at 1:00 this morning when it awoke her from sleep. She reports that she did have a brief episode a few months ago, and her PCP had her undergo stress test which was abnormal. She was seen by Dr. Arteaga on 03/10/2019, and they discussed the possibility of cardiac catheterization, however, she decided that she would wait. Principal Diagnosis Chest pain Discharge Exam Constitutional WD/WN, vitals as above Eyes + anicteric sclerae Neck trachea midline, no thyromegaly Respiratory normal respiratory effort, lungs clear to auscultation Cardiovascular RRR, no murmur, no edema Chest (Breasts) Chest: normal inspection of chest Gastrointestinal (Abdomen) normal bowel sounds, soft, nontender, no hepatosplenomegaly Musculoskeletal Head/Neck/Chest: neck supple; no chest tenderness Extremities: extremities normal to inspection; no cyanosis and no clubbing Skin no rashes, warm and dry Neurologic moves all extremities and awake; no focal motor deficits Psychiatric A+Ox3, euthymic affect Lymphatic no lymphedema Discharge Data Allergies Allergy/AdvReac Type Severity Reaction Status Date / Time No Known Drug Allergies Allergy Verified 03/10/19 14:58 Consultations 03/22/19 03:43 ED Decision to Admit Stat 03/22/19 05:44 Consult Cardiology Routine Consult Case Management - Discharge Planning Routine Procedures Performed Operation Date: 03/23/19 12:00 Actual Procedures p Cath, Left with Cors and Vent - Manuel Arteaga MD s Cineradiography w/Routine Exam - Manuel Arteaga MD Ordered Studies 03/23/19 06:51 CL Cath Imgs for PACS use only Routine CXR Hospital Course (1) Unstable angina: Unstable angina ruled out. This was not ACS Serial troponins negative. Atypical chest pain however similar to her previous cardiac chest pains Received heparin gtt and had cardiac catheterization which showed patent RCA stent and same/stable LAD disease, no acute stenoses. Continue aspirin, Brilinta, metoprolol and lisinopril. -chest pain could be GI vs small vessel vasospasm -advised Pepcid 20mg po bid x 2 weeks and if has recurrent pain, suggest f/u with Cardiology to discuss antianginal medication (2) Coronary artery disease: CAD/inferior wall [place] on 04/02/2018 /RCA stent placement on 04/02/2018/hypertension- Continue aspirin, Brilinta, lisinopril, metoprolol. (3) S/P right coronary artery (RCA) stent placement: Underwent cardiac catheterization for STEMI on 04/02/2018 with RCA PCI stent placement Stent patent on cardiac cath this admission (4) Old inferior wall myocardial infarction: Noted on 04/02/2018 (5) GERD (gastroesophageal reflux disease): With known moderate hiatal hernia. By report she has a good hold on the difference between her cardiac chest pains which resolved with prior stenting and reflux for which she takes ranitidine as needed. Change to Pepcid 20mg bid x 2 weeks for GERD (6) Hyperlipidemia LDL goal <70: Continue atorvastatin 20 mg p.o. daily. Lipid panel here is excellent, LDL only 46, HDL 74, total cholesterol 131 (7) DVT prophylaxis: heparin drip (8) Discharge planning issues: Disposition-stable for dc to home Total Time Total Time Spent Total Time Spent (In Minutes): 35 min Total Time Includes: Examination of the Patient, Discharge Planning and Medication Reconciliation Discharge Plan Discharge Items Patient Disposition: Home - Self-Care Reason For Visit: UNSTABLE ANGINA Discharge Diagnosis: Chest pain Condition on Discharge: Good Activity: As commented below Driving/Machine Use: Resume 3 days after discharge Non-emergency contact: Primary Care Provider and [employer] Call non-emergency contact if: you have any medication questions, your symptoms worsen, your pain is not controlled, your pain is worsening, your pain is unusual for you and your pain is concerning for you Follow-up/Referrals: Venkata Key MD [Primary Care Provider] - Diet: Heart Healthy Addtl Attending Provider Instructions: Please take Pepcid 20mg twice a day x 2 weeks to see if this helps prevent recurrent chest pain. This chest pain could have been some small vessel coronary artery vasospasm and you should follow up with Dr. Arteaga to discuss further if you have recurrence of pain. Please follow up with your PCP as will be scheduled for you. Pending Studies at Discharge: No Stand-Alone Forms: My [facility] Medications and DC Order Prescriptions: New famotidine [Pepcid] 20 mg tablet 20 mg PO BID Qty: 28 RF: 0 Continued atorvastatin 20 mg tablet 20 mg PO DAILY RF: 0 nitroglycerin 0.4 mg tablet, sublingual 0.4 mg Sublingual Q5M PRN (Reason: chest pain) Qty: 15 RF: 0 ticagrelor 60 mg tablet 60 mg PO BID Qty: 60 RF: 6 cholecalciferol (vitamin D3) [Vitamin D3] 2,000 unit Tablet 2,000 unit PO DAILY RF: 0 cyclobenzaprine 10 mg Tablet 10 mg PO TID PRN (Reason: muscle spasm) Qty: 15 RF: 0 lisinopril [Zestril] 5 mg Tablet 5 mg PO QAM Qty: 30 RF: 0 acetaminophen [Mapap (acetaminophen)] 325 mg Tablet 650 mg PO Q4H PRN (Reason: pain) Qty: 30 RF: 0 metoprolol tartrate 25 mg Tablet 25 mg PO BID Qty: 60 RF: 0 aspirin [Ecotrin Low Strength] 81 mg Tablet,Delayed Release (Dr/Ec) 81 mg PO QAM Qty: 30 RF: 0 Discontinued ranitidine HCl 150 mg Tablet 150 mg PO DAILY PRN (Reason: Heartburn) RF: 0 Discharge Orders: Discharge Order (Routine); Ordered 03/24/19 Ordered By: Dee Puga Admission Data Admit Date/Time: 03/22/19 04:53 Attending Provider: Dee Puga Admit Provider: Victorino Blas Primary Care Provider: Venkata Key Other Providers: Victorino Blas ; Manuel Arteaga
== END 2019-03-24 13:10 | disposition home or self-care (01) | DRG 287 ==
LOC: ED 02:13 → SUATTDRO 04:53 → 2S 04:53